=== PATIENT | female | born 1955 | race Caucasian/White ===

== ENCOUNTER 2020-02-16 08:05 | Outpatient (CLI) | payer BC, SELFPAY ==
--- NOTE | ~2020-02-16 | MM_ITS ---
EXAMINATION: MM screening [facility] BI w jimmy HISTORY: Screening mammogram TECHNIQUE: Craniocaudal and mediolateral oblique 3-D tomosynthesis images were obtained and synthetic 2-D images were generated. CAD analysis was submitted and interpreted. COMPARISON: Comparison to multiple prior studies sequentially, with oldest reviewed study dated 01/27/2017. BREAST PARENCHYMAL COMPOSITION: There are scattered areas of fibroglandular density. FINDINGS: There is no evidence of suspicious mass, calcification, or architectural distortion to sugg est malignancy in either breast. There has been no suspicious interval change. IMPRESSION: 1. No mammographic evidence of malignancy. 2. Recommend routine screening mammography in one year. BI-RADS Category 1: Negative Reviewed, dictated and finalized at location A.
== END 2020-02-16 08:06 | disposition home or self-care (01) ==
PROVIDERS: PCP Family Medicine; Visit Provider Family Medicine
DX: Z12.31 Encounter for screening mammogram for malignant neoplasm of breast (principal)
CPT/HCPCS: 77063; 77067

== ENCOUNTER 2021-01-10 14:15 | Outpatient (CLI) | payer BC, SELFPAY ==
--- NOTE | 2021-01-10 | ECG_ITS ---
Measurements Intervals [place] Rate: 78 P: 52 VT: 166 QRS: 8 QRSD: 82 T: 50 QT: 389 QTc: 446 Interpretive Statements SINUS RHYTHM MINIMAL Q WAVES- HIGH LATERAL LEADS BASELINE ARTIFACT- I, II, III, AVR, AVL, AVF, V1-V6 BORDERLINE ECG Electronically Signed On 01-10-2021 15:13:24 CDT by Tripp Dela Cruz D.O.
[2021-01-10 15:22] LABS: Hematocrit 41.7 % (37.0-47.0); Hemoglobin 13.8 g/dL (12.0-15.0)
[2021-01-10 15:30] LABS: Urine Cotinine NEGATIVE
[2021-01-10 15:33] LABS: Albumin Level 4.5 g/dL (3.5-5.1); Glucose 97 mg/dL (65-105)
[2021-01-10 16:01] LABS: Hemoglobin A1C 5.3 % (<5.7)
== END 2021-01-10 14:16 | disposition home or self-care (01) ==
PROVIDERS: PCP Family Medicine; Visit Provider Orthopaedic Surgery
DX: Z01.818 Encounter for other preprocedural examination (principal); M17.12 Unilateral primary osteoarthritis, left knee; I10 Essential (primary) hypertension; R01.1 Cardiac murmur, unspecified
CPT/HCPCS: 80307; 82040; 82947; 83036; 85014; 85018; 93005

== ENCOUNTER 2021-02-21 07:52 | Outpatient (CLI) | payer BC, SELFPAY ==
[2021-02-21 09:51] LABS: Basophils Percent Auto 0.5 % (0.2-1.2); Eosinophils Absolute Auto 0.3 K/mm3 (0-0.3); Eosinophils Percent Auto 4.3 % (0-4.4); Hematocrit 40.9 % (37.0-47.0); Hemoglobin 13.7 g/dL (12.0-15.0); Immature Granulocyte Absolute 0.01 K/mm3 (0.00-0.031); Immature Granulocyte Percent A 0.1 % (0-0.5); Lymphocytes Absolute Auto 1.55 K/mm3 (0.9-3.2); Lymphocytes Percent Auto 19.4 % (18.3-44.2); Mean Corpuscular HGB Conc 33.5 g/dl (32-36); Mean Corpuscular Hemoglobin 29.9 pg (26-34); Mean Corpuscular Volume 89.3 fl (80-100); Mean Platelet Volume 11.2 fl (7.4-10.4); Monocytes Absolute Auto 0.8 K/mm3 (0.1-0.6); Monocytes Percent Auto 9.5 % (2.6-8.5); Neutrophils Absolute Auto 5.3 K/mm3 (1.3-6.7); Neutrophils Percent Auto 66.2 % (45.5-73.1); Platelet Count Result 247 k/mm3 (150-375); Red Blood Count 4.58 M/mm3 (4.2-5.4); Red Cell Distribution Width 12.1 % (11.5-14.5)
[2021-02-21 10:03] LABS: Anion Gap 6 mmol/L (8-16); Blood Urea Nitrogen 20 mg/dL (7-17); Calcium 10.2 mg/dL (8.4-10.2); Carbon Dioxide 33 mmol/L (22-30); Chloride 100 mmol/L (98-107); Estimated Glomerular Filt Rate > 60; Glucose 98 mg/dL (65-105); Potassium 4.1 mmol/L (3.4-5.0); Sodium 139 mmol/L (137-145)
== END 2021-02-21 07:53 | disposition home or self-care (01) ==
PROVIDERS: Anesthesiology; PCP Family Medicine; Visit Provider Orthopaedic Surgery
DX: Z01.818 Encounter for other preprocedural examination (principal); M17.12 Unilateral primary osteoarthritis, left knee; I10 Essential (primary) hypertension
CPT/HCPCS: 36415; 80048; 85025; 86850; 86900; 86901; 87081

== ENCOUNTER → 2021-03-03 00:11 | Outpatient (CLI) | payer BC, SELFPAY ==
[2021-03-03 17:56] LABS: SARS-CoV-2 RNA PCR Negative
== END ==
PROVIDERS: PCP Family Medicine; Visit Provider Orthopaedic Surgery
DX: Z01.812 Encounter for preprocedural laboratory examination (principal); Z20.822 Contact with and (suspected) exposure to COVID-19
CPT/HCPCS: C9803; U0003; U0005

== ENCOUNTER 2021-03-07 15:02 | Observation (INO) | payer BC, SELFPAY ==
[2021-02-21 08:08] VITALS: BMI 37.6
[2021-02-21 09:02] VITALS: BP 127/85; PULSE 75; RESP 16; TEMP 36.6; O2SAT 100
[2021-03-06] VITALS (14 sets, daily range): BP systolic 87–134; BP diastolic 49–91; PULSE 58–88; RESP 12–20; TEMP 35.7–36.4; O2SAT 92–100
[2021-03-06] MEDS: ACETAMINOPHEN 500 MG TABLET 1000 MG PO (06:30)
[2021-03-06] MEDS: LACTATED RINGERS 1,000 ML 30 ML IV CONT ×2 (06:40→09:49)
--- NOTE | 2021-03-06 06:50 | WPDANESEPPF ---
Anes - Initial Pre Proc Eval Procedure: Operation Date: 03/06/21 07:30 Proposed Procedures p Left Total Knee Arthroplasty - Adama Solano MD Date/Time: 03/06/21 06:50 Surgeon: Adama Solano MD Pre Op Diagnosis: Primary OA, Left Knee Patient Data Age: 65 Gender: F Height: 1.6 m Weight: 96 kg Last Vital Signs Temp 36.1 C L 03/06/21 06:44 Pulse 88 03/06/21 06:44 Resp 16 02/21/21 09:02 BP 134/74 03/06/21 06:44 Pulse Ox 99 03/06/21 06:44 Allergies Allergy/AdvReac Type Severity Reaction Status Date / Time No Known Allergies Allergy Verified 03/06/21 06:20 Home Medications Medication Instructions Recorded Confirmed Type atenolol 25 mg tablet 25 mg PO DAILY #90 tablet 08/05/19 03/06/21 Rx olmesartan 20 1 tablet PO DAILY #90 tablet 08/05/19 03/06/21 Rx mg-hydrochlorothiazide 12.5 mg tablet tramadol 50 mg tablet 50 mg PO BID PRN #60 tablet 01/15/21 03/06/21 Rx duloxetine 30 mg capsule,delayed 30 mg PO DAILY #90 cap 02/05/21 03/06/21 Rx release rabeprazole 20 mg tablet,delayed 20 mg PO DAILY #90 tablet 02/05/21 03/06/21 Rx release calcium carbonate-vitamin D3 1 tablet PO DAILY 02/21/21 03/06/21 History [Caltrate 600 plus D] ibuprofen [Advil] 400 mg PO Q6H PRN 02/21/21 03/06/21 History pgcvhbtb-imm-ttba-FA-lutein 1 tablet PO DAILY 02/21/21 03/06/21 History [Centrum Silver Women] Patient hx anesthesia problems: none Family hx anesthesia problems: none PMFSH Past Medical History Medical History (Updated 03/06/21 @ 06:52 by Bong Townsend DO) Arthritis of both knees BMI 39.0-39.9,adult Body mass index (BMI) of 40.1 to 44.9 in adult Essential (primary) hypertension Exposure to COVID-19 virus GERD (gastroesophageal reflux disease) Heart murmur History of blood transfusion Infertility Kidney stone Need for Tdap vaccination Nevus of right eye Pneumonia Routine gynecological examination Skin cancer Strain of thoracic back region Surgical History Surgical History H/O total hysterectomy History of appendectomy History of colposcopy History of hip surgery (~1974) Bone spur removal History of knee surgery History of removal of ovarian cyst Family History Family History Sibling Family history of gastrointestinal disorder Hypertension Father Family history of chronic obstructive pulmonary disease Family history of congestive heart failure Hypertension Mother Family history of heart disease in male family member before age 55 Hypertension Grandparent Family history of heart disease in male family member before age 55 Social History Social History Smoking status: Never smoker Additional smoking assessment comments: DENIES ANY FORM OF TOBACCO USE Alcohol intake: current Drinks per week: 2 Substance use: never Living arrangements: with family Gender identity (if verbalized by the patient): Female Spiritual care concerns: No Agree to blood products: Yes Anes - Eval Final PreProcedure Day of Procedure 03/06/21 06:50 Patient weight: obese Heart: regular rate and rhythm Lungs: clear to auscultation and normal air movement Airway: Mallampati scale class III Neurological: alert and oriented Last oral intake: >/= 8 hours ASA classification: III Emergent: no Anesthetic plan: proceed Anesthesia type and monitoring: general LMA and standard monitoring Informed Consent: The patient's anesthetic plan and its attendant risks and benefits were discussed with the patient/family/POA. Questions were solicited and answers provided to the satisfaction of the patient/family/POA.
[2021-03-06] MEDS: TRANEXAMIC ACID 1,000MG/ISO100 1,000 MG/100 ML BAG 200 MG IVPB (06:52)
[2021-03-06] MEDS: SCOPOLAMINE 1.5 MG PATCH TRANSDERM (07:23)
[2021-03-06] MEDS: FAMOTIDINE 20 MG/2 ML VIAL IV PUSH (07:23)
--- NOTE | 2021-03-06 07:26 | WPDHPUPDATE1 ---
History and Physical Update Update Date/Time: 03/06/21 07:26 PRECEDE WITH LEFT TOTAL KNEE ARTHROPLASTY. History and Physical has been reviewed, including an updated exam of the patient. There are NO changes in the patient's condition. Risks, benefits, and alternatives have been discussed and questions answered. Patient agrees to proceed with procedure.
[2021-03-06] MEDS: ceFAZolin 2 GM/D5W 50 ML 2 GM/50 ML BAG IVPB (07:29)
--- NOTE | 2021-03-06 07:58 | WPDANESPNB ---
Anes - Peripheral Nerve Block Date/Time: 03/06/21 07:58 I have discussed with the patient/family/POA the placement of a peripheral nerve block for post-operative pain management, including associated risks, benefits, complications, and side effects. Alternative methods of post-operative analgesia were detailed. Questions were solicited and answers provided to the satisfaction of the patient/family/POA. Time-Out: A pre-procedural Time-Out was completed immediately before starting the procedure and confirmed: Patient Identification, Site, Procedure, Patient Position and the Availability of Requisite Equipment. Clinical Indications: Acute post-operative pain management requested by the operative surgeon. Nerve Block Insertion Note Anes-nerve block: adductor canal left Patient position: supine Skin prep: chlorhexidine Needle: 22 gauge, stimulating, insulated echogenic needle. Needle length: 80 mm Technique: ultrasound Injectate: bupivacaine 0.5% with epi 5 mcg/ml (20cc/20cc) Observations: tolerated well Complications: none Procedure start time:: 719 Procedure end time:: 722
[2021-03-06] MEDS: GENTAMICIN BONE CEMENT REFOBACIN 1 EACH TOPICAL (08:58)
[2021-03-06] MEDS: fentaNYL CITRATE INJ (*CRX) 100 MCG/2 ML VIAL 25 MCG IV PUSH ×7 (10:05→11:03)
--- NOTE | 2021-03-06 10:13 | W.PM.PROC2 ---
Procedure Note - Detailed Date of Procedure 03/06/21 Pre-op Diagnosis Primary OA, Left Knee Post-op Diagnosis same Procedure Performed Left total knee arthroplasty. Surgeon Adama Solano MD Veneer Redrier Gloria Rg PA-C Anesthesia general and regional Findings Fair bone quality. Significant overall laxity. Tightness in flexion required a 1.5 mm downsizing of the femur. Standard femoral and tibial resections. Significant synovitis noted. Very large medial release required. Description of Procedure Physician nurses medical assistants phlebotomists, Gloria Rg PA-C, required for surgery; including patient positioning, draping, tissue retraction, maintaining instrument position, cement removal, wound closure, and dressing placement. The patient was given a nerve block preoperatively, and then brought to the operating room. A general anesthetic was administered. The leg was prepped and draped in the usual sterile fashion. The limb was elevated and the tourniquet inflated to 300 mmHg during initial exposure, and cementation. A longitudinal incision was created along the medial border of the patella and patellar tendon, and a trivector approach to the knee was performed. A large medial release was taken. The knee was then flexed. The osteophytes were carefully removed. The intramedullary guide was placed in the femoral canal. The distal femoral resection was then taken with the oscillating saw. The collateral ligaments were carefully protected. The tibia was carefully exposed. The jig was applied, and the proximal tibia was resected according to preoperative plan. The anesthetic mixture was injected into the periarticular tissues. The knee was balanced in extension, and further medial release was performed including the semitendinosus. The anterior/ posterior cruciate ligament and meniscal remnants were removed. The patella was measured. Patellar resection was carried out with the oscillating saw. The lug holes drilled. The femur was sized and rotation assessed using a combination of gap balancing, posterior referencing, and the AP axis. The 4 in 1 cutting block was used to finish the femoral cuts after equal gaps were assured. The box cut was taken. The osteophytes were carefully removed from the back of the knee. The knee was copiously irrigated with antibiotic solution periodically throughout the procedure. The spacer block was used to confirm equal flexion and extension gaps. Further releases were performed as needed. The tibia was sized and broached. The bony surfaces were prepared for cementing with pulsatile lavage. The real tibial component and femoral components were cemented into position. Excess cement was carefully removed. The polyethylene insert was placed. The patella component was subsequently cemented. Patellar tracking was carefully assessed. No additional releases were required. The wound was closed with #1 Vicryl suture, #2 Quill suture, 9-Vxfwkt-rpn suture, and 2-0 Strata-fix suture followed by Steri-Strips. A sterile bulky dressing was applied. Meticulous hemostasis was maintained throughout the procedure. There were no complications. The patient was extubated and brought to the recovery room in stable condition after the application of sterile dressing with Papi bandage. Implants Livelensathlon knee system universal base plate size 4, cemented size 4 posterior stabilized femoral component, 16 mm posterior stabilized polyethylene insert, 35 mm asymmetric polyethylene patella. Two batches antibiotic Biomet cement. Estimated Blood Loss -150.0 Drains No Pathology none sent Complications No immediate complications Condition stable Disposition PACU
--- NOTE | 2021-03-06 11:15 | ADMGEN ---
This patient, Serenity Sullivan, was admitted to Medical Room 261-01. Patient/family oriented to hospital policies and general routines including ID bracelet, bed and alarms, visiting hours, pain management, procedures, bathroom and other care routines, personal items, smoking policy, room service/diet, and visiting hours. Information on how to activate the Rapid Response Team has been discussed. Patient/Family are encouraged to report perceived risks to care and to ask questions if they do not understand what they are told or what they should do.
[2021-03-06] MEDS: oxyCODONE HCL (*CRX) 5 MG TAB IR 10 MG PO (11:54)
[2021-03-06] MEDS: SODIUM CHLORIDE 0.9% IV 1,000 ML 125 ML IV CONT (11:54)
[2021-03-06] MEDS: ASPIRIN 81 MG ENTERIC TABLET PO (16:39)
[2021-03-06] MEDS: MELOXICAM 7.5 MG TABLET PO (16:39)
[2021-03-06] MEDS: DOCUSATE SODIUM 100 MG CAPSULE PO (16:39)
[2021-03-06] MEDS: oxyCODONE HCL (*CRX) 5 MG TAB IR PO ×2 (16:41→22:47)
[2021-03-06] MEDS: SENNOSIDES 8.6 MG TABLET 17.2 MG PO (22:47)
[2021-03-07] VITALS (7 sets, daily range): BP systolic 110–141; BP diastolic 59–82; PULSE 67–88; RESP 18–20; TEMP 36–36.6; O2SAT 98–100
--- NOTE | ~2021-03-07 | XR_ITS ---
EXAMINATION: XR knee LT 2V DATE: 03/06/2021 10:01 CDT INDICATION: Left total knee arthroplasties TECHNIQUE: 2 views left knee FINDINGS: There is a left total knee arthroplasty in expected position. Subcutaneous gas with fluid and air in the joint are consistent with recent surgery. No evidence of periprosthetic fracture. IMPRESSION: 1. Recent left total knee arthroplasty. Reviewed, dictated and finalized at location A.
[2021-03-07] MEDS: ONDANSETRON INJ 4 MG/2 ML VIAL IV PUSH ×4 (00:51→16:45)
[2021-03-07] MEDS: oxyCODONE HCL (*CRX) 5 MG TAB IR PO ×3 (04:30→22:47)
[2021-03-07 05:37] LABS: Basophils Percent Auto 0.3 % (0.2-1.2); Eosinophils Percent Auto 0.1 % (0-4.4); Hematocrit 33.1 % (37.0-47.0); Immature Granulocyte Percent A 0.7 % (0-0.5); Lymphocytes Absolute Auto 1.06 K/mm3 (0.9-3.2); Lymphocytes Percent Auto 7.2 % (18.3-44.2); Mean Corpuscular HGB Conc 33.2 g/dl (32-36); Mean Corpuscular Hemoglobin 29.4 pg (26-34); Mean Corpuscular Volume 88.5 fl (80-100); Mean Platelet Volume 10.8 fl (7.4-10.4); Monocytes Absolute Auto 1.3 K/mm3 (0.1-0.6); Monocytes Percent Auto 8.8 % (2.6-8.5); Neutrophils Absolute Auto 12.1 K/mm3 (1.3-6.7); Neutrophils Percent Auto 82.9 % (45.5-73.1); Platelet Count Result 212 k/mm3 (150-375); Red Blood Count 3.74 M/mm3 (4.2-5.4); Red Cell Distribution Width 12.4 % (11.5-14.5); White Blood Count 14.6 K/mm3 (4.5-10.0)
[2021-03-07 06:02] LABS: Anion Gap 7 mmol/L (8-16); Blood Urea Nitrogen 21 mg/dL (7-17); Calcium 8.8 mg/dL (8.4-10.2); Carbon Dioxide 28 mmol/L (22-30); Chloride 101 mmol/L (98-107); Estimated CRCL calculation 69 ml/min; Estimated Glomerular Filt Rate > 60; Glucose 117 mg/dL (65-105); Potassium 3.5 mmol/L (3.4-5.0); Sodium 136 mmol/L (137-145)
[2021-03-07] MEDS: ASPIRIN 81 MG ENTERIC TABLET PO ×2 (09:25→16:38)
[2021-03-07] MEDS: atenoloL 25 MG TABLET PO (09:25)
[2021-03-07] MEDS: PANTOPRAZOLE 40 MG TABLET PO (09:26)
[2021-03-07] MEDS: MELOXICAM 7.5 MG TABLET PO ×2 (09:26→16:38)
[2021-03-07] MEDS: hydroCHLOROthiazide 12.5 MG CAPSULE PO (09:26)
[2021-03-07] MEDS: OLMESARTAN MEDOXOMIL 20 MG TABLET PO (09:26)
[2021-03-07] MEDS: DULoxetine HCL 30 MG CAPSULE.DR PO (09:26)
[2021-03-07] MEDS: DOCUSATE SODIUM 100 MG CAPSULE PO ×2 (09:26→16:38)
[2021-03-07] MEDS: THERAPEUTIC MULTIVITAMINS/MINERALS TAB (*BKC) 1 TABLET PO (09:26)
--- NOTE | 2021-03-07 12:50 | WPDCN ---
Assessment and Plan Assessment and plan (1) Osteoarthritis of left knee: Code(s): M17.12 - Unilateral primary osteoarthritis, left knee Status: Acute Assessment and Plan: Postoperative day 0 status post left total knee arthroplasty. Wound care and pain control will be deferred to Dr. Solano as well as DVT prophylaxis. (2) Essential (primary) hypertension: Code(s): I10 - Essential (primary) hypertension Status: Chronic Assessment and Plan: Blood pressures were reviewed and they are stable postoperatively. Continue antihypertensives and monitor daily. (3) Gastroesophageal reflux disease: Code(s): K21.9 - Gastro-esophageal reflux disease without esophagitis Status: Acute Assessment and Plan: No acute issues. Continue PPI. (4) Anxiety: Code(s): F41.9 - Anxiety disorder, unspecified Status: Acute Assessment and Plan: No acute issues. Continue duloxetine. (5) Anemia: Code(s): D64.9 - Anemia, unspecified Status: Acute Assessment and Plan: Hemoglobin and hematocrit this morning were 11.0 and 33.1% respectively. Estimated blood loss was surgery was 150 ml. Repeat H&H in a.m.. (6) Confusion: Code(s): R41.0 - Disorientation, unspecified Status: Acute Assessment and Plan: Patient has mild confusion which I believe is likely due to narcotic pain medication. Will try to limit those and monitor closely. Additional Plan Thank you for allowing us to participate in this patient's care. Please do not hesitate to contact us with any questions. Supervising physician for this medical consultation is Dr. Mikayla Ronquillo. HPI Data of Consult Date/Time: 03/07/21 12:50 Requesting Physician: Adama Solano MD Primary Care Provider: Ambrocio Soto MD Consult Narrative Narrative: This is a 65-year-old female with osteoarthritis, hypertension, and GERD whom the hospitalist service has been consulted for management of her medical conditions postoperatively. She has had longstanding pain in that left knee not amenable to conservative outpatient treatment and thus she elected for replacement today. Her surgery was performed under general anesthesia with no immediate complications documented and an estimated blood loss of 150 ml. At the time of my evaluation she complains of throbbing pain in the back of the left knee radiating up the thigh. Her stomach has been upset and she has had quite a lot of nausea but no vomiting. She seems a little confused as well but she and her attribute that to the pain medications. She denies fever, chills, sweats, chest pain, shortness of breath, and vomiting. She also denies paresthesias, skin color, and temperature changes distal to the surgical site. Review of Systems Review of Systems: Narrative: Twelve systems were reviewed with pertinent positives and negatives as per HPI. She denies recent cold and flu symptoms. No headache, auditory visual changes, focal weakness, or paresthesias. She denies chest pain shortness of breath. No vomiting. No dysuria. No history of venous thromboembolism. Except as documented, all other systems were reviewed and are negative. [facility] Past Medical History Medical History (Updated 03/07/21 @ 21:30 by Karen Box PA-C) Anxiety Arthritis of both knees Benign paroxysmal positional vertigo Essential (primary) hypertension Gastroesophageal reflux disease Heart murmur History of blood transfusion History of squamous cell carcinoma of skin Kidney stone Surgical History Surgical History History of appendectomy History of arthroplasty of left knee (03/07/21) History of arthroscopy of both knees History of colposcopy History of hip surgery (~1974) Bone spur removal H
[2021-03-07] MEDS: PROMETHAZINE HCL 25 MG/ML AMPUL 12.5 MG IV PUSH ×2 (13:12→22:47)
[2021-03-07] MEDS: SODIUM CHLORIDE 0.9% IV 100 ML 20 ML (13:30)
--- NOTE | 2021-03-07 13:43 | PCOTNOTE ---
Attempted therapy session; Patient declined therapeutic attempts this session due to nausea and severe abdominal pain of 10/10; nurse notified/aware; follow up as appropriate for occupational therapy treatment session at later time/date.
--- NOTE | 2021-03-07 14:48 | PCOTNOTE ---
2nd attempt for therapy session this date; patient sleeping; per patient pain has finally let up and she was comfortable enough to rest; spoke with nursing and requested to allow patient to rest this afternoon; follow up at later date for occupational therapy session as appropriate.
--- NOTE | 2021-03-07 15:23 | PCPTNOTE ---
Attempted to see patient at 13:03 for second PT treatment, however patient refused due to nausea. Patient states, I have been throwing up since before lunch. I can't do therapy right now. Attempted a second time later in afternoon at 15:08, however patient asleep. Per RN, let patient sleep and rest, because her pain is more under control now. Will attempt to see patient tomorrow per plan of care. Gabriela Flores, FLORIST DESIGNER
--- NOTE | 2021-03-07 16:47 | PM.PNORT ---
Progress Note: A&P Assessment and Plan (1) Status post total left knee replacement: Code(s): Z96.652 - Presence of left artificial knee joint Status: Acute Assessment and Plan: Postop day 1: Left total knee arthroplasty. Patient tolerated procedure well. Having trouble with post surgical nausea and vomiting. No benefit from Zofran. Will try Metoclopramide. Also severe ABD pain. She has passed gas. Stomach soft. Will consult hospitalist for ABD pain and medical management. DVT prophylaxis: 81 mg baby aspirin b.i.d. for 14 days. Pain medication: Percocet. Subjective Subjective Date/Time Seen: 03/07/21 08:00, 12:30 POD#1 TKA Patient had a rough night. Had trouble sleeping. Also nausea that got worse throughout the day. Unable to keep food down. Increasing left quadrant abd pain. She has been passing gas. No chest pain or SOB. No numbness or tingling distally. Pain not well controlled. Block has worn off. Review of Systems Constitutional: Constitutional: Denies difficulty sleeping, Denies fatigue, Denies fever(s), Denies headache(s) and Denies night sweats Eyes: Eyes: Denies loss of vision ENT: Denies dizziness, Denies headache(s) and Denies hearing loss Cardiovascular: Cardiovascular: Denies irregular heart rhythm and Denies dyspnea Respiratory: Respiratory: Denies cough and Denies dyspnea Gastrointestinal: Gastrointestinal: Denies change in bowel habits, Denies diarrhea, Denies nausea and Denies vomiting Genitourinary: Genitourinary: Denies nocturia, Denies dysuria and Denies urinary incontinence Musculoskeletal: Musculoskeletal: Denies abnormal gait Neurologic: Denies abnormal gait, Denies dizziness, Denies headache(s) and Denies loss of vision Psychiatric: Psychiatric: Denies anxiety and Denies depression Endocrine: Endocrine: Denies cold intolerance, Denies fatigue and Denies heat intolerance Exam Narrative: Exam Narrative: 65-year-old overweight female. Resting uncomfortably in bed. Vomiting at the time of my visit. Alert and oriented x3. No acute distress. Wearing compression socks bilaterally. Dressing intact with no drainage. Moderate swelling. Slight ecchymosis. No erythema. No hematoma. No warmth. Range of motion limited due to pain. Calf nontender. Neurologic status intact. No varicosities. Distal pulses palpable. Light touch sensation intact. Good capillary refill. Objective Data Vital Signs Vital Signs: Vital Signs - 24 hr 03/06/21 17:20 03/06/21 20:00 03/06/21 20:27 Temperature 96.4 F L Pulse Rate 58 L 66 Respiratory Rate 18 20 Blood Pressure 114/64 Pulse Oximetry 99 98 98 03/06/21 20:40 03/07/21 00:37 03/07/21 04:56 Temperature 97.5 F L 97.2 F L 98 F Pulse Rate 66 67 72 Respiratory Rate 20 20 20 Blood Pressure 117/53 L 110/59 L 122/60 Pulse Oximetry 98 100 100 03/07/21 08:56 03/07/21 09:25 03/07/21 12:56 Temperature 97.8 F 97.9 F Pulse Rate 87 88 88 Respiratory Rate 18 18 Blood Pressure 128/80 130/78 Pulse Oximetry 98 98 Intake/Output Intake/Output: Intake & Output 03/04/21 03/05/21 03/06/21 03/07/21 23:59 23:59 23:59 23:59 Intake Total 1430 1190 Output Total 300 900 Balance 1130 290 Meds/Results Medications: Active Medications Generic Name Dose Route Start Last Admin Trade Name Freq PRN Reason Stop Dose Admin Aspirin 81 mg 03/06/21 17:00 03/07/21 16:38 Aspirin 81 Mg Enteric Tablet PO 81 mg BID [facility] Administration Atenolol 25 mg 03/07/21 09:00 03/07/21 09:25 Atenolol 25 Mg Tablet PO 25 mg DAILY [facility] Administration Calcium Carbonate 500 mg 03/07/21 09:00 03/07/21 09:26 Calcium/Vitamin D 500 Mg Tablet PO 500 mg DAILY [facility] Administration Cyclobenzaprine HCl 10 mg 03/06/21 11:11 Cyclobenzaprine Hcl 10 Mg Tablet PO Q8H PRN Spasms Docusate Sodium 100 mg 03/06/21 17:00 03/07/21 16:38 Docusate Sodium 100 Mg Capsule PO 100 mg BID [facility] Admini
[2021-03-07] MEDS: oxyCODONE HCL (*CRX) 5 MG TAB IR 10 MG PO (20:28)
[2021-03-07] MEDS: SENNOSIDES 8.6 MG TABLET 17.2 MG PO (20:28)
[2021-03-08] MEDS: oxyCODONE HCL (*CRX) 5 MG TAB IR PO ×2 (05:01→09:21)
[2021-03-08 05:32] VITALS: BP 120/66; PULSE 53; RESP 20; TEMP 36.6; O2SAT 98
[2021-03-08 05:32] LABS: Hematocrit 35.7 % (37.0-47.0); Hemoglobin 11.5 g/dL (12.0-15.0); Mean Corpuscular HGB Conc 32.2 g/dl (32-36); Mean Corpuscular Hemoglobin 29.3 pg (26-34); Mean Corpuscular Volume 90.8 fl (80-100); Mean Platelet Volume 10.4 fl (7.4-10.4); Platelet Count Result 253 k/mm3 (150-375); Red Blood Count 3.93 M/mm3 (4.2-5.4); Red Cell Distribution Width 12.5 % (11.5-14.5); White Blood Count 13.4 K/mm3 (4.5-10.0)
[2021-03-08 06:00] LABS: Alanine Aminotransferase 22 U/L (4-35); Alkaline Phosphatase 77 U/L (38-126); Anion Gap 7 mmol/L (8-16); Aspartate Amino Transferase 29 U/L (14-36); Bilirubin,Total 0.9 mg/dL (0.2-1.3); Blood Urea Nitrogen 11 mg/dL (7-17); Calcium 9.8 mg/dL (8.4-10.2); Carbon Dioxide 34 mmol/L (22-30); Chloride 97 mmol/L (98-107); Estimated CRCL calculation 78 ml/min; Estimated Glomerular Filt Rate > 60; Glucose 110 mg/dL (65-105); Magnesium 1.7 mg/dL (1.6-2.3); Potassium 3.8 mmol/L (3.4-5.0); Sodium 138 mmol/L (137-145)
[2021-03-08 08:19] VITALS: BP 101/57; PULSE 105; RESP 16; TEMP 36.4; O2SAT 96
[2021-03-08 09:17] VITALS: BP 120/74
[2021-03-08 09:18] VITALS: PULSE 94
[2021-03-08] MEDS: atenoloL 25 MG TABLET PO (09:18)
[2021-03-08] MEDS: ASPIRIN 81 MG ENTERIC TABLET PO (09:18)
[2021-03-08] MEDS: DULoxetine HCL 30 MG CAPSULE.DR PO (09:20)
[2021-03-08] MEDS: THERAPEUTIC MULTIVITAMINS/MINERALS TAB (*BKC) 1 TABLET PO (09:20)
[2021-03-08] MEDS: DOCUSATE SODIUM 100 MG CAPSULE PO (09:20)
[2021-03-08] MEDS: hydroCHLOROthiazide 12.5 MG CAPSULE PO (09:20)
[2021-03-08] MEDS: MELOXICAM 7.5 MG TABLET PO (09:20)
[2021-03-08] MEDS: OLMESARTAN MEDOXOMIL 20 MG TABLET PO (09:20)
[2021-03-08] MEDS: ONDANSETRON INJ 4 MG/2 ML VIAL IV PUSH (09:21)
[2021-03-08] MEDS: PANTOPRAZOLE 40 MG TABLET PO (09:21)
--- NOTE | 2021-03-08 11:41 | PM.IMPN ---
Progress Note: A&P Assessment and Plan (1) Osteoarthritis of left knee: Code(s): M17.12 - Unilateral primary osteoarthritis, left knee Status: Acute Assessment and Plan: Postoperative day 1 status post left total knee arthroplasty. She tolerated the procedure well and pain is well controlled at this time. Wound care and pain control will be deferred to Dr. Solano as well as DVT prophylaxis. (2) Essential (primary) hypertension: Code(s): I10 - Essential (primary) hypertension Status: Chronic Assessment and Plan: Blood pressures were reviewed and they are stable postoperatively. BP 132/84. Continue atenolol, olmesartan, and hydrochlorothiazide. Monitor BP daily. (3) Gastroesophageal reflux disease: Code(s): K21.9 - Gastro-esophageal reflux disease without esophagitis Status: Acute Assessment and Plan: No acute issues. Continue PPI. (4) Anxiety: Code(s): F41.9 - Anxiety disorder, unspecified Status: Acute Assessment and Plan: No acute issues. Continue duloxetine. (5) Anemia: Code(s): D64.9 - Anemia, unspecified Status: Acute Assessment and Plan: Hemoglobin and hematocrit this morning were 11.5 and 35.7% respectively, remaining stable postoperatively. Vital signs are stable and there is no evidence of ongoing blood loss. Monitor H&H. (6) Confusion: Code(s): R41.0 - Disorientation, unspecified Status: Acute Assessment and Plan: Resolved. Patient had mild confusion yesterday which was felt to be due to narcotic pain medication. Recommend limitation of narcotic pain medication. Subjective Date/time seen: 03/08/21 11:41 Interval history: Date of service: 03/08/2021 Serenity Sullivan is 65-year-old female with history of hypertension, BPPV, anxiety, and GERD who is status post left total knee arthroplasty and is seen in follow-up for consultation. She is feeling better today. She notes that she was confused yesterday but feels this is resolved entirely and she is back to her normal self. Was able to tolerate breakfast today. She complains of pain in her knee that she rates as 6-7/10 in severity but improves with analgesic. She is also having pain in the lower left flank. She feels this is a muscular pain related to her positioning during surgery. She notices the pain more if she is up and walking. She she denies abdominal cramping, bloating, nausea, or vomiting. She denies fever or chills. She is passing flatus but has not had a bowel movement, she feels that she needs to soon. She had a headache this morning but this has improved. She was able to get up and walk around with therapy. She denies any urinary symptoms. Denies dizziness, lightheadedness. She has no other concerns at this time. Review of Systems Review of Systems: All systems reviewed & are unremarkable except as noted in HPI and below Exam Narrative: Exam Narrative: Ms. Sullivan is a well-nourished, well-appearing 65-year-old female who is lying supine in bed. She appears comfortable and is in NARD. Neuro: awake, alert and oriented x4, speech clear, no focal neuro deficits noted HEENMT: normocephalic, atraumatic, EOMI, sclerae anicteric, moist oral mucosa, tongue midline, nares patent Neck: supple, no lymphadenopathy Respiratory: clear to auscultation bilaterally, nonlabored breathing Cardio: regular rate, regular rhythm with S1-S2 Abdomen: nondistended, normoactive bowel sounds, soft, nontender to palpation Extremities: Left knee in brace and covered with ice pack. Left thigh and calf nontender to palpation. Left lower extremity without edema, neurovascularly intact good sensation and brisk capillary refill. Right lower extremity no edema erythema, tenderness to palpation. DP pulses 2+ bilaterally Skin: no rashes or lesions, warm and dry Psych: appropriate mood and affect, judgment and insight intact Obj
--- NOTE | 2021-03-08 13:13 | PM.DS ---
DS: Admitting Diagnosis Admitting Diagnosis Admitting Diagnosis: Left knee osteoarthritis DS: Discharge Diagnosis Discharge Diagnosis (1) Status post total left knee replacement: Code(s): Z96.652 - Presence of left artificial knee joint Status: Acute Assessment and Plan: Postop day 2: Left total knee arthroplasty. Patient tolerated procedure well. Had trouble with post surgical nausea and vomiting. Also ABD pain. Hospitalist was consulted. She has passed gas. Stomach soft. Pain manageable with pain medication. No numbness or tingling. We had a lengthy discussion regarding postoperative wound care, limitations, expectations, and exercises. Patient shows good understanding. She has had initial physical therapy and is tolerating it well. DVT prophylaxis: 81 mg baby aspirin b.i.d. for 14 days. Pain medication: Percocet. Patient has followup appointment with Dr. Solano in 3 weeks. DS: Summary Hospital Course Reason for hospitalization: Total knee arthroplasty. Hospital Course: Patient tolerated procedure well. Has had initial PT/OT. Trouble with nausea and vomiting postop. Patient was able to hold down breakfast and lunch today without nausea. Also some pain in her lower abdomen. Hospitalist was consulted. Stable at this time. She has been passing gas. Status at Discharge Functional status at discharge: uses cane/walker Overall status at discharge: patient is progressing back to baseline Time Spent with Patient Time attestation: Total time spent providing and/or coordinating discharge services: Exam Narrative: Exam Narrative: Overweight 65-year-old female. Resting comfortably in bed. Alert and oriented x3. No acute distress. Wearing compression socks bilaterally. Dressing intact with no drainage. Moderate swelling. No ecchymosis. No erythema. No hematoma. Range of motion limited due to pain. Calf nontender. Neurologic status intact. No varicosities. Distal pulses palpable. DS: Data Data Completed and Pending Labs on day of discharge: Labs from last 24 hours 03/08/21 03/08/21 05:22 05:22 WBC 13.4 H RBC 3.93 L Hgb 11.5 L Hct 35.7 L MCV 90.8 MCH 29.3 MCHC 32.2 RDW 12.5 Plt Count 253 MPV 10.4 Sodium 138 Potassium 3.8 Chloride 97 L Carbon Dioxide 34 H Anion Gap 7 L BUN 11 D Creatinine 0.70 Estim Creat Clear Calc 78 Estimated GFR > 60 Glucose 110 H Calcium 9.8 Magnesium 1.7 Total Bilirubin 0.9 AST 29 ALT 22 Alkaline Phosphatase 77 Total Protein 7.0 Albumin 4.0 Discharge Plan Discharge Consulting providers: Cyrus Morton Discharging Clinician: Adama Solano Patient Disposition: Home, Self-Care Activity: may shower and other - see discharge instructions Diet: as tolerated and regular Wound Care Instructions: follow printed instructions Discharge Instructions: Remove the Scopolamine patch that was placed behind your left ear in 72 hours or less. Wash your hands after touching. Ortho: See instruction sheet Stand Alone Forms: General Discharge Instructions Follow-up/Referrals: Gloria Rg PA [Physician Outreach Professional] - Discharge Medications: New oxycodone-acetaminophen 5-325 mg tablet 1 - 2 tablet PO Q4-6H MDD 6 PRN (Reason: pain) Qty: 30 RF: 0 aspirin 81 mg tablet,delayed release (DR/EC) 81 mg PO BID 14 Days Qty: 28 RF: 0 Continued Centrum Silver Women 8 mg iron-400 mcg-300 mcg Tablet 1 tablet PO DAILY RF: 0 Caltrate 600 plus D 600 mg (1,500 mg)-800 unit Tablet,Chewable 1 tablet PO DAILY RF: 0 ibuprofen [Advil] 200 mg Tablet 400 mg PO Q6H PRN (Reason: Pain) RF: 0 olmesartan-hydrochlorothiazide 20-12.5 mg tablet 1 tablet PO DAILY Qty: 90 RF: 1 atenolol 25 mg tablet 25 mg PO DAILY Qty: 90 RF: 1 tramadol 50 mg tablet 50 mg PO BID PRN (Reason: pain) Qty: 60 RF: 0 duloxetine 30 mg capsule,delayed release(DR/EC)
== END 2021-03-08 14:50 | disposition home or self-care (01) ==
LOC: ANHSURGERY 15:05 → ANH2MED 15:05
PROVIDERS: Physician Assistant; Admitting Provider Orthopaedic Surgery; PCP Family Medicine; Visit Provider Physician Assistant
PROC: (CPT 27447; principal; 2021-03-06 07:30)
DX: M17.12 Unilateral primary osteoarthritis, left knee (principal); G89.18 Other acute postprocedural pain; M65.862 Other synovitis and tenosynovitis, left lower leg; R11.2 Nausea with vomiting, unspecified; I10 Essential (primary) hypertension; K21.9 Gastro-esophageal reflux disease without esophagitis; F41.9 Anxiety disorder, unspecified; D64.9 Anemia, unspecified; R41.0 Disorientation, unspecified; E66.9 Obesity, unspecified; Z68.37 Body mass index [BMI] 37.0-37.9, adult
CPT/HCPCS: 27447; 64447; 36415; 73560; 80048; 80053; 83735; 85025; 85027; 86850; 86900; 86901; 87081; 97110; 97116; 97161; 97165; 97530; 97535; A9270; C1713; C1776; C9803; G0378; J0131; J0171; J0690; J1100; J1170; J1885; J2250; J2270; J2370; J2405; J2550; J2704; J2795; J3010; J7030; J7120; U0003; U0005

== ENCOUNTER → 2021-04-13 14:41 | Outpatient (CLI) | payer BC, SELFPAY ==
--- NOTE | ~2021-04-13 | XR_ITS ---
XR lumbar spine 2-3V DATE: 04/13/2021 15:00 INDICATION: Lumbago with sciatica, left side TECHNIQUE: AP, lateral, coned lateral lumbosacral views COMPARISON: None FINDINGS: There is diffuse osteopenia. There is moderately severe degenerative disc disease at L1 to, moderate degenerative disc disease and minimal retrolisthesis at L2-3. There is mild degenerative disc disease and minimal retrolisthesis at L3-4. There is moderately prominent degenerative disease at L4-5 and moderately severe degenerative disc di sease at L5-S1. There is grade 1 anterolisthesis at L4-5 due to degenerative change at the apophyseal joints. No fracture or bone destruction. The included lower thoracic and lumbar pedicles are intact. The sacroiliac joints are intact. IMPRESSION: Diffuse osteopenia Multilevel degenerative disc disease, including mild retrolisthesis at L2-3 and L3-4 Degenerative change at the apophyseal joints with grade 1 anterolisthesis at L4-5 Reviewed, dictated and finalized at location A. IMPRESSION: Diffuse osteopenia Multilevel degenerative disc disease, including mild retrolisthesis at L2-3 and L3-4 Degenerative change at the apophyseal joints with grade 1 anterolisthesis at L4 -5
== END ==
PROVIDERS: PCP Family Medicine; Visit Provider Nurse Practitioner Family
DX: M47.816 Spondylosis without myelopathy or radiculopathy, lumbar region (principal); M85.88 Other specified disorders of bone density and structure, other site
CPT/HCPCS: 72100

== ENCOUNTER 2021-09-25 15:58 | Outpatient (CLI) | payer BC, SELFPAY ==
--- NOTE | ~2021-09-25 | MM_ITS ---
EXAMINATION: MM screening [facility] BI w jimmy HISTORY: Screening mammogram TECHNIQUE: Craniocaudal and mediolateral oblique 3-D tomosynthesis images were obtained and synthetic 2-D images were generated. CAD analysis was submitted and interpreted. COMPARISON: 02/16/2020, 02/11/2019, 08/10/2018, 02/06/2018, 02/05/2018 BREAST PARENCHYMAL COMPOSITION: The breasts are almost entirely fatty. FINDINGS: A stable asymmetry is present in the inner left breast on the craniocaudal view. There is n o evidence of suspicious mass, calcification, or architectural distortion to suggest malignancy in ei ther breast. There has been no suspicious interval change. IMPRESSION: 1. No mammographic evidence of malignancy. 2. Recommend routine screening mammography in one year. BI-RADS Category 2: Benign finding(s). Reviewed, dictated and finalized at location A. 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
== END 2021-09-25 15:59 | disposition home or self-care (01) ==
PROVIDERS: PCP Family Medicine; Visit Provider Obstetrics & Gynecology
DX: Z12.31 Encounter for screening mammogram for malignant neoplasm of breast (principal)
CPT/HCPCS: 77063; 77067

== ENCOUNTER 2022-02-06 10:15 | Outpatient (CLI) | payer BC, SELFPAY ==
--- NOTE | 2022-02-06 | ECG_ITS ---
Measurements Intervals [place] Rate: 76 P: 55 VA: 178 QRS: 15 QRSD: 84 T: 36 QT: 372 QTc: 420 Interpretive Statements SINUS RHYTHM NORMAL ECG Electronically Signed On 02-06-2022 12:08:17 CDT by Tripp Dela Cruz D.O.
[2022-02-06 11:02] LABS: Hematocrit 40.3 % (37.0-47.0); Hemoglobin 13.2 g/dL (12.0-15.0)
[2022-02-06 11:12] LABS: Albumin Level 4.6 g/dL (3.5-5.1); Estimated Glomerular Filt Rate > 60
[2022-02-06 11:21] LABS: Hemoglobin A1C 5.2 % (<5.7)
[2022-02-06 17:47] LABS: Glucose 104 mg/dL (65-110)
== END 2022-02-06 10:16 | disposition home or self-care (01) ==
PROVIDERS: PCP Family Medicine; Visit Provider Orthopaedic Surgery
DX: Z01.818 Encounter for other preprocedural examination (principal); K21.9 Gastro-esophageal reflux disease without esophagitis; R73.03 Prediabetes; I10 Essential (primary) hypertension; R01.1 Cardiac murmur, unspecified
CPT/HCPCS: 82040; 82565; 82947; 83036; 85014; 85018; 93005

== ENCOUNTER 2022-03-11 11:52 | Outpatient (CLI) | payer BC, SELFPAY ==
[2022-03-11 13:30] LABS: Basophils Absolute Auto 0.1 K/mm3 (0.0-0.1); Basophils Percent Auto 0.7 % (0.2-1.2); Eosinophils Absolute Auto 0.1 K/mm3 (0-0.3); Eosinophils Percent Auto 1.9 % (0-4.4); Hematocrit 39.6 % (37.0-47.0); Hemoglobin 13.4 g/dL (12.0-15.0); Immature Granulocyte Absolute 0.03 K/mm3 (0.00-0.031); Immature Granulocyte Percent A 0.4 % (0-0.5); Lymphocytes Absolute Auto 1.57 K/mm3 (0.9-3.2); Lymphocytes Percent Auto 20.9 % (18.3-44.2); Mean Corpuscular HGB Conc 33.8 g/dl (32-36); Mean Corpuscular Hemoglobin 29.8 pg (26-34); Mean Platelet Volume 11.1 fl (7.4-10.4); Monocytes Absolute Auto 0.7 K/mm3 (0.1-0.6); Monocytes Percent Auto 9.7 % (2.6-8.5); Neutrophils Percent Auto 66.4 % (45.5-73.1); Platelet Count Result 234 k/mm3 (150-375); Red Cell Distribution Width 12.6 % (11.5-14.5); White Blood Count 7.5 K/mm3 (4.5-10.0)
[2022-03-11 13:35] LABS: Albumin Level 4.7 g/dL (3.5-5.1)
[2022-03-11 13:37] LABS: Anion Gap 3 mmol/L (8-16); Blood Urea Nitrogen 21 mg/dL (7-17); Calcium 9.4 mg/dL (8.4-10.2); Carbon Dioxide 34 mmol/L (22-30); Chloride 98 mmol/L (98-107); Estimated Glomerular Filt Rate > 60; Glucose 102 mg/dL (65-110); Sodium 135 mmol/L (137-145)
[2022-03-11 13:39] LABS: Urine Cotinine NEGATIVE
== END 2022-03-11 11:53 | disposition home or self-care (01) ==
LOC: ANHSURGERY 12:01
PROVIDERS: Anesthesiology; PCP Family Medicine; Visit Provider Orthopaedic Surgery
DX: Z01.818 Encounter for other preprocedural examination (principal); M17.12 Unilateral primary osteoarthritis, left knee; Z79.899 Other long term (current) drug therapy
CPT/HCPCS: 80048; 80307; 82040; 85025; 87081

== ENCOUNTER 2022-04-09 00:05 | Day surgery (SDC) | payer BC, SELFPAY ==
--- NOTE | 2022-03-11 11:44 | PC.NURSE ---
Report to the Outpatient Waiting Room, entrance under the green pavilion located off [facility], at time _1130_ on date _04/09/22_. OR Time: _1:30 PM_. - You and your visitor will be asked a series of questions to screen for COVID 19 for your protection. - Only one visitor is allowed at this time. VISITING HOURS 10AM-8PM, USE MAIN HOSPITAL ENTRANCE - The patient visitor is requested to leave or wait in car when not with patient. - A mask is required within the hospital. Patients may have clear liquids (water, carbonated beverages, clear teas, apple juice) until 3 hours prior to surgery (1030 AM) with a maximum of 20 ounces. - No food from midnight until time of surgery Take the following medications with a SIP of water the morning of surgery: _ATENOLOL, DULOXETINE_ Medications to discontinue N/A____, Date to take last dose Please no make-up, nail thai, hairspray, perfume, deodorant, or body powder the day of surgery. No jewelry (including any body piercings) or valuables the day of surgery, leave them at home. Please take a shower or bath the night before, or the morning of, surgery with an antibacterial soap. Wear comfortable, loose fitting clothing. - Jewelry must be removed prior to entering the operating room. Rings and piercings that are not removed may be cut off. - The hospital will not accept responsibility for valuables. - Please leave all valuables, including medications, at home the day of surgery. If you are going home after surgery, a licensed public transit bus driver must drive you home. - NO public transportation without another adult. - We recommend that an adult stay with you for 24 hours following discharge. - We also recommend that you do not drive, make important decision, drink alcoholic beverages, or take any drugs that were not prescribed by your health care provider for at least 24 hours after your discharge time. Follow any additional instructions given to you from DR. BILLS. TOTAL JOINT CLASS 03/27/22 @ 1000 AM, [facility] - USE MAIN ENTRANCE If you or anyone in your household have experienced Covid symptoms in the past week, please notify your surgeon or the nurse liaison at the phone number below for possible testing. Instructions given to _PT_and asked if any additional questions and then verbalized understanding. Patient advised to call surgeon office or pre surgery nurse liaison [phone] if any additional questions.
[2022-03-11 12:32] VITALS: BP 134/80; PULSE 80; RESP 18; TEMP 36.6; O2SAT 97; BMI 39.5
--- NOTE | 2022-04-08 14:46 | WPDANESEPPF ---
Anes - Initial Pre Proc Eval Procedure: Operation Date: 04/09/22 13:30 Proposed Procedures p Right Total Knee Arthroplasty - Adama Solano MD Date/Time: 04/08/22 14:46 Surgeon: Adama Solano MD Pre Op Diagnosis: primary oa rigth knee Patient Data Age: 67 Gender: F Height: 1.57 m Weight: 98.1 kg Last Vital Signs Temp 36.6 C 03/11/22 12:32 Pulse 80 03/11/22 12:32 Resp 18 03/11/22 12:32 BP 134/80 03/11/22 12:32 Pulse Ox 97 03/11/22 12:32 O2 Del Method Room Air 03/11/22 12:32 Allergies Allergy/AdvReac Type Severity Reaction Status Date / Time oxycodone [From OxyContin] AdvReac Severe Confusion Verified 03/28/22 09:30 Home Medications Medication Instructions Recorded Confirmed Type atenolol 25 mg tablet 25 mg PO QAM 03/11/22 03/11/22 History duloxetine 30 mg capsule,delayed 30 mg DAILY 03/11/22 03/11/22 History release olmesartan 20 1 tablet PO QAM 03/11/22 03/11/22 History mg-hydrochlorothiazide 12.5 mg tablet rabeprazole 20 mg tablet,delayed 20 mg PO QAM 03/11/22 03/11/22 History release sulfamethoxazole 800 1 tablet PO Q12H #10 tabs 03/27/22 Rx mg-trimethoprim 160 mg tablet (Bactrim DS) Patient hx anesthesia problems: none Family hx anesthesia problems: none Results Review: All pre-operative results and documents have been reviewed as part of the pre-operative evaluation. [facility] Past Medical History Medical History (Updated 04/08/22 @ 14:47 by Humberto Turpin MD) Abnormal mammogram Actinic keratosis Acute non-recurrent frontal sinusitis Ankle edema, bilateral Anxiety Arthritis of both knees Benign paroxysmal positional vertigo Essential (primary) hypertension Gastroesophageal reflux disease Heart murmur History of blood transfusion 2003 History of squamous cell carcinoma of skin Impaired glucose tolerance (oral) Kidney stone Obesity (BMI 30-39.9) Prediabetes Primary osteoarthritis of right knee Vertigo Surgical History Surgical History History of appendectomy History of arthroplasty of left knee (03/07/21) History of arthroscopy of both knees History of colposcopy History of hip surgery (~1974) Bone spur removal History of hysterectomy 2014? History of removal of ovarian cyst Status post surgical removal of malignant neoplasm of skin Excision squamous cell carcinoma of the upper extremities. Family History Family History Sibling Family history of gastrointestinal disorder Hypertension Father Family history of chronic obstructive pulmonary disease Family history of congestive heart failure Hypertension Mother Family history of heart disease in male family member before age 55 Hypertension Grandparent Family history of heart disease in male family member before age 55 Social History Social History Social History: The patient lives in [place] with her . They have 7-month-old twin granddaughters and she helps care for them during the week days. Lifelong nonsmoker. Rare alcohol use in moderation. No illicit substance use. She designates her as her surrogate decision maker and she wishes to be a full code. 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
--- NOTE | 2022-04-08 14:47 | WPDANESPNB ---
Anes - Peripheral Nerve Block Date/Time: 04/08/22 14:47 I have discussed with the patient/family/POA the placement of a peripheral nerve block for post-operative pain management, including associated risks, benefits, complications, and side effects. Alternative methods of post-operative analgesia were detailed. Questions were solicited and answers provided to the satisfaction of the patient/family/POA. Time-Out: A pre-procedural Time-Out was completed immediately before starting the procedure and confirmed: Patient Identification, Site, Procedure, Patient Position and the Availability of Requisite Equipment. Clinical Indications: Acute post-operative pain management requested by the operative surgeon. Nerve Block Insertion Note Anes-nerve block: adductor canal right Patient position: supine Skin prep: chlorhexidine Needle: 22 gauge, stimulating, insulated echogenic needle. Needle length: 80 mm Technique: ultrasound Technique comment: in plane Injectate: bupivacaine 0.5% with epi 5 mcg/ml (30cc) Observations: tolerated well Complications: none Procedure start time:: 1300 Procedure end time:: 1305
[2022-04-09] VITALS (15 sets, daily range): BP systolic 103–131; BP diastolic 57–90; PULSE 64–99; RESP 16–19; TEMP 36.3–37.1; O2SAT 95–100
--- NOTE | ~2022-04-09 | XR_ITS ---
EXAMINATION: XR knee RT 2V DATE: 04/09/2022 15:50 INDICATION: Total right knee arthroplasty. Postop. TECHNIQUE: 2 views of right knee were obtained. COMPARISON: Right knee radiographs 03/28/2022 FINDINGS: There is a total right knee arthroplasty with patellar resurfacing in near-anatomic alignme nt. No fracture. There is gas in the knee joint and soft tissues, consistent with recent surgery. IMPRESSION: 1. Total right knee arthroplasty in near-anatomic alignment. Reviewed, dictated and finalized at location A.
--- NOTE | 2022-04-09 07:11 | WPDHPUPDATE1 ---
History and Physical Update Update Date/Time: 04/09/22 07:11 History and Physical has been reviewed, including an updated exam of the patient. There are NO changes in the patient's condition. Risks, benefits, and alternatives have been discussed and questions answered. Patient agrees to proceed with procedure.
[2022-04-09] MEDS: ACETAMINOPHEN 500 MG TABLET 1000 MG PO (11:50)
[2022-04-09] MEDS: LACTATED RINGERS 1,000 ML 30 ML IV CONT ×2 (12:10→15:32)
[2022-04-09] MEDS: TRANEXAMIC ACID 1,000MG/ISO100 1,000 MG/100 ML BAG 200 MG IVPB (13:01)
[2022-04-09] MEDS: ceFAZolin 2 GM/D5W 50 ML 2 GM/50 ML BAG IVPB ×2 (13:19→21:03)
[2022-04-09] MEDS: fentaNYL CITRATE INJ (*CRX) 100 MCG/2 ML VIAL 25 MCG IV PUSH ×8 (15:39→16:35)
--- NOTE | 2022-04-09 16:29 | W.PM.PROC2 ---
Procedure Note - Detailed Date of Procedure 04/09/22 Pre-op Diagnosis Primary oa right knee Post-op Diagnosis Same Procedure Performed Total knee arthroplasty, right. Surgeon Adama Solano MD [employer] Gloria Harding PA-C Anesthesia General and Regional (subsartorial block) Findings Extensive synovitis. Very advanced degenerative changes with valgus deformity. Valgus laxity. Extensive tibial and femoral osteophytes. Good bone quality. Lateral release required with pie crusting of the lateral collateral ligament. 1.5 mm downsizing of the femoral component. Minimal resection of the distal lateral femur. 3? rotation remained optimal. Description of Procedure The patient was brought to the operating room. A general anesthetic was administered. The leg was prepped and draped in the usual sterile fashion. The limb was elevated and the tourniquet inflated to 300 mmHg during initial exposure, and cementation. A longitudinal incision was created along the medial border of the patella and patellar tendon, and a trivector approach to the knee was performed. No medial release was taken. The knee was then flexed. The osteophytes were carefully removed. The intramedullary guide was placed in the femoral canal. The distal femoral resection was then taken with the oscillating saw. The collateral ligaments were carefully protected. The tibia was carefully exposed. The jig was applied, and the proximal tibia was resected according to preoperative plan. The knee was balanced in extension. Appropriate releases were taken where needed. Lateral release was required with pie crusting the LCL and release of the popliteus and IT band. The anterior cruciate ligament and meniscal remnants were removed. The posterior cruciate ligament was resected. The patella was measured. Patellar resection was carried out with the oscillating saw. The femur was sized and rotation assessed using a combination of gap balancing, posterior referencing, and the AP axis. The 4 in 1 cutting block, and box cut guider were used to finish the femoral cuts after equal gaps were assured. The osteophytes were carefully removed from the back of the knee. The knee was copiously irrigated with antibiotic solution periodically throughout the procedure. The meniscal remnants were removed. The spacer block was used to confirm equal flexion and extension gaps. The tibia was sized and broached. The bony surfaces were prepared for cementing with pulsatile lavage. The real tibial and femoral and patellar components were cemented into position. Excess cement was carefully removed. Patellar tracking was carefully assessed. No additional releases were required. Dilute sterile Betadine soak performed for three minutes. Copious irrigation then performed. The wound was closed with #1 Vicryl suture, #2, 2-0, and 3-0 barbed suture, followed by Steri-Strips. A sterile bulky dressing was applied. Meticulous hemostasis was maintained throughout the procedure. The bipolar cautery device was used. The pain relieving mixture was injected into the periarticular tissues during the procedure. There were no complications. The patient was extubated and brought to the recovery room in stable condition after the application of sterile dressing with Papi bandage. Implants [employer] Triathlon knee system, universal cemented tibia size 4, cemented posterior stabilized femoral component size 4 ,and a 16 mm PS polyethylene insert. 32mm asymmetric all polyethylene patella component. Estimated Blood Loss -150.0 Drains No Pathology None sent Complications No immediate complications Condition Stable Disposition PACU [facility] Billing Surgery - Charge Forward: Surgery Billing
--- NOTE | 2022-04-09 16:56 | SUR.PHASEI ---
1645 PT MEETS ANESTHESIA CRITERIA TO BE DISCHARGED TO THE FLOOR. NO ROOM AVAILABLE. IN A HOLDING PATTERN.
[2022-04-09] MEDS: SODIUM CHLORIDE 0.9% IV 1,000 ML 125 ML IV CONT (20:56)
[2022-04-09] MEDS: ASPIRIN 81 MG ENTERIC TABLET PO (20:58)
[2022-04-09] MEDS: SENNA/DOCUSATE SODIUM TABLET 2 TAB PO (20:58)
[2022-04-09] MEDS: MELOXICAM 7.5 MG TABLET PO (20:58)
[2022-04-09] MEDS: traMADol HCL (*CRX) 50 MG TABLET PO (22:44)
[2022-04-10 00:29] VITALS: BP 101/54; PULSE 81; RESP 14; TEMP 36.7; O2SAT 99
[2022-04-10] MEDS: traMADol HCL (*CRX) 50 MG TABLET PO ×2 (03:25→08:46)
[2022-04-10 04:19] VITALS: BP 122/66; PULSE 69; RESP 18; TEMP 36.9; O2SAT 98
[2022-04-10] MEDS: ceFAZolin 2 GM/D5W 50 ML 2 GM/50 ML BAG IVPB (04:44)
[2022-04-10 08:29] VITALS: BP 131/73; PULSE 81; RESP 18; TEMP 36.9; O2SAT 96
[2022-04-10 09:53] VITALS: O2SAT 95
--- NOTE | 2022-04-10 10:11 | PM.DS ---
DS: Admitting Diagnosis Discharge Date 04/10/22 Admitting Diagnosis OA knee Right DS: Discharge Diagnosis Discharge Diagnosis (1) Status post total right knee replacement: Code(s): Z96.651 - Presence of right artificial knee joint Status: Acute Assessment and Plan: Postop day 1: Right total knee arthroplasty. Patient tolerated procedure well. No complications. Pain manageable with pain medication. No numbness or tingling. We had a lengthy discussion regarding postoperative wound care, limitations, expectations, and exercises. Patient shows good understanding. He has had initial physical therapy and is tolerating it well. DVT prophylaxis: 81 mg baby aspirin b.i.d. for 14 days. Short frequent walks. Compression socks for 3 weeks. Pain medication: Tramadol. Prednisone. Meloxicam. Patient has followup appointment with Dr. Solano in 3 weeks. DS: Summary Hospital Course Reason for hospitalization: Total knee arthroplasty Hospital Course: Patient tolerated procedure well. Has had initial PT/OT. No complications. Pain well managed. Status at Discharge Functional status at discharge: uses cane/walker Overall status at discharge: patient is progressing back to baseline Time Spent with Patient Time attestation: Total time spent providing and/or coordinating discharge services: Exam Narrative: Overweight female. Resting comfortably in chair. No acute distress. A&O x3. Wearing compression socks bilaterally. Dressing intact with no drainage. Moderate swelling. Small area of ecchymosis. No erythema. No hematoma. Good early range of motion. 5-90 degrees. Calf nontender. Neurologic status intact. No varicosities. Distal pulses palpable. DS: Data Data Completed and Pending Labs on day of discharge: Labs from last 24 hours 04/09/22 11:58 Blood Type O Positive Antibody Screen Negative Discharge Plan Discharge Patient Disposition: Home, Self-Care Discharge Instructions: See green instruction sheets Stand Alone Forms: General Discharge Instructions Follow-up/Referrals: Gloria Harding PA [Physician Purifying Plant Operator] - Discharge Medications: New aspirin 81 mg tablet,delayed release (DR/EC) 81 mg PO BID 14 Days Qty: 28 0RF meloxicam 15 mg tablet 15 mg PO DAILY Qty: 30 0RF Rx Instructions: Cut in half. Take 1/2 in morning and 1/2 at night. Take with food. Stop if stomach upset. prednisone 5 mg tablet 5 mg PO DAILY 21 Days Qty: 21 0RF aspirin 81 mg tablet,delayed release (DR/EC) 81 mg PO BID 14 Days Qty: 28 0RF tramadol 50 mg tablet 50 mg PO Q4-6H PRN (Reason: pain) Qty: 30 0RF Continued rabeprazole 20 mg tablet,delayed release (DR/EC) 20 mg PO QAM Rx Instructions: Do not crush, chew, or divide. atenolol 25 mg tablet 25 mg PO QAM Rx Instructions: TAKE 1 TABLET BY MOUTH EVERY DAY olmesartan-hydrochlorothiazide 20-12.5 mg tablet 1 tablet PO QAM Rx Instructions: TAKE 1 TABLET BY MOUTH EVERY DAY duloxetine 30 mg capsule,delayed release(DR/EC) 30 mg DAILY Rx Instructions: TAKE 1 CAPSULE BY MOUTH DAILY
[2022-04-10] MEDS: predniSONE 5 MG TABLET PO (10:19)
[2022-04-10] MEDS: ASPIRIN 81 MG ENTERIC TABLET PO (10:19)
[2022-04-10] MEDS: OLMESARTAN MEDOXOMIL 20 MG TABLET PO (10:20)
[2022-04-10] MEDS: PANTOPRAZOLE 40 MG TABLET PO (10:20)
[2022-04-10] MEDS: SENNA/DOCUSATE SODIUM TABLET 2 TAB PO (10:20)
[2022-04-10] MEDS: MELOXICAM 7.5 MG TABLET PO (10:20)
[2022-04-10 10:21] VITALS: PULSE 69
[2022-04-10] MEDS: polyethylene glycoL 3350 17 GM POWD.PACK PO (10:21)
[2022-04-10] MEDS: atenoloL 25 MG TABLET PO (10:21)
== END 2022-04-10 11:20 | disposition home or self-care (01) ==
LOC: ANHSURGERY 11:29 → ANH3MED 04-10 10:11
PROVIDERS: PCP Family Medicine; Visit Provider Orthopaedic Surgery
PROC: (CPT 27447; principal; 2022-04-09 13:30)
DX: M17.11 Unilateral primary osteoarthritis, right knee (principal); G89.18 Other acute postprocedural pain; K21.9 Gastro-esophageal reflux disease without esophagitis; F41.9 Anxiety disorder, unspecified; I10 Essential (primary) hypertension; R73.03 Prediabetes; E66.01 Morbid (severe) obesity due to excess calories; Z68.39 Body mass index [BMI] 39.0-39.9, adult
CPT/HCPCS: 27447; 64447; 36415; 73560; 86850; 86900; 86901; 97110; 97161; 97165; A9270; C1713; C1776; J0131; J0171; J0690; J1100; J1170; J1885; J2250; J2370; J2405; J2704; J2795; J3010; J7030; J7120; J7512

== ENCOUNTER 2022-12-13 07:42 | Outpatient (CLI) | payer BC, SELFPAY ==
--- NOTE | ~2022-12-13 | DEXA_ITS ---
Bone Density Report Name: PHILIP PICKENS Age: 67 Sex: Female Ethnicity: White Date of : 1955 Indication: postmenopausal; screening for osteoporosis; parental hip fracture; hysterectomy; Referring Provider: SAVAGE HOLMAN Study: Bone densitometry was performed. Exam Date: December 13, 2022 Accession number: [id number] Bone Density: Region BMD T-score Z-score Classification AP Spine(L1-L4) 0.935 -1.0 0.8 Normal Femoral Neck (Left) 0.682 -1.5 0.0 Osteopenia Total Hip (Left) 0.895 -0.4 0.9 Normal Femoral Neck (Right) 0.625 -2.0 -0.5 Osteopenia Total Hip (Right) 0.834 -0.9 0.4 Normal Total Hip Mean 0.865 -0.7 0.7 Normal World Health Organization criteria for BMD impression classify patients as: Normal (T-score at or above -1.0), Osteopenia (T-score between -1.0 and -2.5), or Osteoporosis (T-score at or below -2.5). 10-year Fracture Risk(1): Major Osteoporotic Fracture 17% Hip Fracture 1.5% Reported Risk Factors: [place] (), Neck BMD=0.625, BMI=39.3, parental fracture (1) FRAX(R) Version 3.08. Fracture probability calculated for an untreated patient. Fracture probability may be lower if the patient has received treatment. Previous Exams: Region Exam Age BMD T-score BMD Change BMD Change Date g/cm2 vs Baseline vs Previous Total Hip(Left) 12/13/2022 67 0.895 -0.4 -0.119 (-11.7% -0.078 (-8.0%) 02/05/2018 62 0.973 0.3 -0.041 (-4.0%) 0.000 (0.0%) 12/12/2015 60 0.973 0.3 -0.041 (-4.0%) -0.043 (-4.3%) 10/12/2013 58 1.016 0.6 0.003 (0.3%) 0.003 (0.3%) 09/18/2011 56 1.014 0.6 Total Hip(Right) 12/13/2022 67 0.834 -0.9 -0.139 (-14.2% -0.115 (-12.1% 02/05/2018 62 0.949 0.1 -0.024 (-2.4%) 0.001 (0.1%) 12/12/2015 60 0.948 0.0 -0.024 (-2.5%) -0.011 (-1.1%) 10/12/2013 58 0.959 0.1 -0.014 (-1.4%) -0.014 (-1.4%) 09/18/2011 56 0.972 0.2 *Denotes significance at 95% confidence level, LSC for Total Hip = 0.027 g/cm2 # Denotes dissimilar scan types or analysis methods Clinical Information Provided by Patient: Parent has had a hip fracture Has used the following medications: Vitamin D, Calcium Has the following medical conditions: Hysterectomy Patient maximum height was 63 Drinks caffeinated beverages Onset of menses at age 15 Number of children 0 Impression: The patient has low bone mass, based on the Right Femoral Neck T-score. The patient has an estimated ten-year risk of hip fra
--- NOTE | ~2022-12-13 | MM_ITS ---
EXAMINATION: MM screening rebel BI w jimmy HISTORY: Screening TECHNIQUE: Craniocaudal and mediolateral oblique 3-D tomosynthesis images were obtained and synthetic 2-D images were generated. CAD analysis was submitted and interpreted. COMPARISON: Comparison to multiple prior studies sequentially, with oldest reviewed study dated 02/05. BREAST PARENCHYMAL COMPOSITION: Breast composed of scattered areas of fibroglandular density FINDINGS: There is a new focal asymmetry in the lower inner quadrant of the right breast. The left breast is stable without evidence for malignancy. IMPRESSION: 1. New focal right breast asymmetry. 2. Additional mammographic views and possible breast ultrasound are recommended. BI-RADS Category 0: Incomplete: Needs additional imaging evaluation. Reviewed, dictated and finalized at location A. IMPRESSION: 1. New focal right breast asymmetry. 2. Additional mammographic views and possible breast ultrasound are recommended . BI-RADS Category 0: Incomplete: Needs additional imaging evaluation.
== END 2022-12-13 07:43 | disposition home or self-care (01) ==
PROVIDERS: PCP Family Medicine; Visit Provider Obstetrics & Gynecology
DX: Z12.31 Encounter for screening mammogram for malignant neoplasm of breast (principal); Z78.0 Asymptomatic menopausal state; M85.89 Other specified disorders of bone density and structure, multiple sites; R92.8 Other abnormal and inconclusive findings on diagnostic imaging of breast
CPT/HCPCS: 77063; 77067; 77080

== ENCOUNTER 2022-12-21 08:15 | Emergency (ER) | payer BC, SELFPAY ==
--- NOTE | 2022-12-21 08:18 | ED.URI ---
HPI - URI/Sore Throat General Chief Complaint: Extremity Problem,Nontraumatic Stated Complaint: rt foot toe infection,congestion,sore throat Time Seen by Provider: 12/21/22 08:17 Source: patient Mode of arrival: ambulatory Limitations: no limitations History of Present Illness HPI Narrative: Kourtney is a 67-year-old female patient presenting to the clinic today with complaints of sore throat, nasal congestion, and possibly right toe infection. She reports she stubbed her toe on Friday night and this rip part of her toenail off. States that is become very red and swollen and tender to touch. Sore throat nasal congestion started on Friday. She denies any known fever or chills. States she is coughing up some yellow phlegm. She denies any shortness of breath or chest pain. Did a at home COVID test today and it was negative. MD elicited complaint: sore throat and nasal congestion Related Data Home Medications Medication Instructions Recorded Confirmed atenolol 25 mg tablet 25 mg PO QAM 03/11/22 12/21/22 olmesartan 20 1 tablet PO QAM 03/11/22 12/21/22 mg-hydrochlorothiazide 12.5 mg tablet Allergies Allergy/AdvReac Type Severity Reaction Status Date / Time oxycodone [From OxyContin] AdvReac Severe Confusion Verified 12/21/22 08:26 Review of Systems Review of Systems: Pertinent positives per HPI. Patient denies any fever, chills, rash, headache, visual changes, dizziness, cough, shortness of breath, chest pain, palpitations, nausea, vomiting, diarrhea, constipation, abdominal pain, or any urinary issues. [facility] Past Medical History Medical History Abnormal mammogram Actinic keratosis Acute non-recurrent frontal sinusitis Ankle edema, bilateral Anxiety Arthritis of both knees Benign paroxysmal positional vertigo Breast asymmetry Essential (primary) hypertension Gastroesophageal reflux disease Heart murmur History of blood transfusion 2003 History of squamous cell carcinoma of skin Impaired glucose tolerance (oral) Kidney stone Obesity (BMI 30-39.9) Prediabetes Primary osteoarthritis of right knee Vertigo Surgical History Surgical History History of appendectomy History of arthroplasty of left knee (03/07/21) History of arthroscopy of both knees History of colposcopy History of hip surgery (~1974) Bone spur removal History of hysterectomy 2014? History of removal of ovarian cyst History of total right knee replacement (~04/09/22) Status post surgical removal of malignant neoplasm of skin Excision squamous cell carcinoma of the upper extremities. Family History Family History Sibling Family history of gastrointestinal disorder Hypertension Father Family history of chronic obstructive pulmonary disease Family history of congestive heart failure Hypertension Mother Family history of heart disease in male family member before age 55 Hypertension Grandparent Family history of heart disease in male family member before age 55 Social History Social History Social History: The patient lives in [place] with her . They have 7-month-old twin granddaughters and she helps care for them during the week days. Lifelong nonsmoker. Rare alcohol use in moderation. No illicit substance use. She designates her as her surrogate decision maker and she wishes to be a full code. Smoking status: Never smoker Second hand tobacco smoke exposure: No Alcohol intake: current Alcohol use details: STATES MAYBE 2 A MONTH Substance use: never Substance use type: does not use Lack of Transportation: No Lack of Food: Never True Current Housing: I Have Housing Concerned About Future Housing: No Difficulty Paying Gas/Electric B
[2022-12-21 08:23] VITALS: BP 109/89; PULSE 99; RESP 16; TEMP 36.4; O2SAT 99
== END 2022-12-21 08:36 | disposition home or self-care (01) ==
PROVIDERS: Emergency Provider Nurse Practitioner Family; PCP Family Medicine
DX: L08.9 Local infection of the skin and subcutaneous tissue, unspecified (principal); J06.9 Acute upper respiratory infection, unspecified; J02.9 Acute pharyngitis, unspecified; M17.0 Bilateral primary osteoarthritis of knee; I10 Essential (primary) hypertension; K21.9 Gastro-esophageal reflux disease without esophagitis; R01.1 Cardiac murmur, unspecified; R73.02 Impaired glucose tolerance (oral); R73.03 Prediabetes; E66.9 Obesity, unspecified; Z68.39 Body mass index [BMI] 39.0-39.9, adult; Z85.828 Personal history of other malignant neoplasm of skin
CPT/HCPCS: 99213; G0463

== ENCOUNTER 2023-01-02 11:19 | Outpatient (CLI) | payer BC, SELFPAY ==
--- NOTE | ~2023-01-02 | MM_ITS ---
EXAMINATION: MM diagnostic rebel RT w jimmy HISTORY: New focal right breast mammographic asymmetry reported on 12/09/2022 screening mammogram TECHNIQUE: Additional full field ML and spot ML, MLO and CC 3-D tomosynthesis images of the right fred ast were performed and synthetic 2-D images were generated. Rolled medial and lateral lateral cranioc audal views. CAD analysis was submitted and interpreted. COMPARISON: 12/09/2022 bilateral screening mammogram FINDINGS: No reproducible suspicious mass is noted on these supplemental views.. IMPRESSION: 1. No mammographic evidence of malignancy 2. Routine annual mammographic screening is recommended BI-RADS Category 1: Negative Reviewed, dictated and finalized at location A.
== END 2023-01-02 11:20 | disposition home or self-care (01) ==
PROVIDERS: PCP Family Medicine; Visit Provider Obstetrics & Gynecology
DX: N64.89 Other specified disorders of breast (principal)
CPT/HCPCS: 77061; 77065; G0279

== ENCOUNTER 2023-01-22 08:06 | Emergency (ER) | payer BC, SELFPAY ==
[2023-01-22 08:21] VITALS: BP 124/72; PULSE 127; RESP 16; TEMP 36.4; O2SAT 96
--- NOTE | 2023-01-22 08:24 | ED.URI ---
HPI - URI/Sore Throat General Chief Complaint: Upper Respiratory Infection Stated Complaint: SORE THROAT/DRAINAGE/EYE REDNESS Time Seen by Provider: 01/22/23 08:24 Source: patient, RN notes reviewed and old records reviewed Mode of arrival: ambulatory Limitations: no limitations History of Present Illness HPI Narrative: 62 year female presents [facility] complaints sore throat, sinus congestion, yellow sinus drainage,sinus pain, bilateral ear pain, productive cough,and noted some crusting to her eyelashes in the morning for the past week duration. Patient reports that she has not had any fevers, chills or sweats, reports no nausea,vomiting or diarrhea. Patient concerned for pink eye grand kids did have pink eye lately, patient has no sclera or conjunctiva redness no drainage noted from eyes.Patient reports that she took some Zyrtec and some NyQuil for her symptoms. MD elicited complaint: sore throat, rhinorrhea, nasal congestion, sinus pain and other (eye redness) Onset (ago): week(s) (1) Pain scale (0-10): 6 Able to tolerate fluids by mouth: Yes Treatments prior to arrival: other (NyQuil,Zyrtec) Related Data Home Medications Medication Instructions Recorded Confirmed atenolol 25 mg tablet 25 mg PO QAM 03/11/22 01/22/23 olmesartan 20 1 tablet PO QAM 03/11/22 01/22/23 mg-hydrochlorothiazide 12.5 mg tablet Allergies Allergy/AdvReac Type Severity Reaction Status Date / Time oxycodone [From OxyContin] AdvReac Severe Confusion Verified 01/22/23 08:29 Review of Systems Review of Systems: CONSTITUTIONAL: Reports malaise,no chills, sweats, or fever. EYES: Denies visual changes, redness, positive for reported crustiness on ashes in am no itching ENT: Reports rhinorrhea, congestion, sinus pain, otalgia and sore throat. CARDIOVASCULAR: Denies chest pain, palpitations, or edema. RESPIRATORY: Reports loose cough.? Denies dyspnea. GASTROINTESTINAL: Denies abdominal pain, nausea, vomiting, diarrhea SKIN: Denies rash or itching. MUSCULOSKELETAL: Denies myalgia. NEUROLOGIC:Reports frontal headache. All systems reviewed & are unremarkable except as noted in HPI and below [facility] Past Medical History Medical History Abnormal mammogram Actinic keratosis Acute non-recurrent frontal sinusitis Ankle edema, bilateral Anxiety Arthritis of both knees Benign paroxysmal positional vertigo Breast asymmetry Essential (primary) hypertension Gastroesophageal reflux disease Heart murmur History of blood transfusion 2003 History of squamous cell carcinoma of skin Impaired glucose tolerance (oral) Kidney stone Obesity (BMI 30-39.9) Prediabetes Primary osteoarthritis of right knee Vertigo Surgical History Surgical History History of appendectomy History of arthroplasty of left knee (03/07/21) History of arthroscopy of both knees History of colposcopy History of hip surgery (~1974) Bone spur removal History of hysterectomy 2014? History of removal of ovarian cyst History of total right knee replacement (~04/09/22) Status post surgical removal of malignant neoplasm of skin Excision squamous cell carcinoma of the upper extremities. Family History Family History Sibling Family history of gastrointestinal disorder Hypertension Father Family history of chronic obstructive pulmonary disease Family history of congestive heart failure Hypertension Mother Family history of heart disease in male family member before age 55 Hypertension Grandparent Family history of heart disease in male family member before age 55 Social History Social History Social History: The patient lives in [place] with her . They have 7-month-old twin granddaughters and she helps care for t
== END 2023-01-22 08:50 | disposition home or self-care (01) ==
PROVIDERS: Emergency Provider Registered Nurse; PCP Family Medicine
DX: J32.9 Chronic sinusitis, unspecified (principal); F41.9 Anxiety disorder, unspecified; M17.0 Bilateral primary osteoarthritis of knee; I10 Essential (primary) hypertension; K21.9 Gastro-esophageal reflux disease without esophagitis; R01.1 Cardiac murmur, unspecified; R73.03 Prediabetes; E66.9 Obesity, unspecified; Z68.42 Body mass index [BMI] 45.0-49.9, adult; Z85.828 Personal history of other malignant neoplasm of skin; Z96.653 Presence of artificial knee joint, bilateral
CPT/HCPCS: 99213; G0463

== ENCOUNTER → 2023-03-04 10:39 | Outpatient (CLI) | payer BC, MEDICARE, SELFPAY ==
--- NOTE | ~2023-03-04 | XR_ITS ---
EXAMINATION: XR chest 2V 03/04/2023 11:12 INDICATION: Chronic cough PROCEDURE: 2 view chest COMPARISON: Comparison to multiple prior studies sequentially, with oldest reviewed study dated 07/24. FINDINGS: The lungs are clear. The cardiomediastinal silhouette is within normal limits. There are no pleural effusions. There is no pneumothorax suspected. IMPRESSION: 1: NO ACUTE CARDIOPULMONARY DISEASE. Reviewed, dictated and finalized at location L.
== END ==
PROVIDERS: PCP Family Medicine; Visit Provider Nurse Practitioner Family
DX: R05.3 Chronic cough (principal)
CPT/HCPCS: 71046

== ENCOUNTER → 2023-03-28 11:08 | Outpatient (CLI) | payer BC, SELFPAY ==
--- NOTE | ~2023-03-28 | CT_ITS ---
CT Scan of the Chest without Contrast: Clinical Indication: Chronic cough Technique: Contiguous sections were acquired throughout the chest without intravenous contrast. Dose reduction technique was used on this scan by utilizing automated exposure control and iterative recon struction technique. The dose-length product (DLP) was 526.24 mGy-cm. Findings: There is no evidence of any significant mediastinal, hilar or axillary lymphadenopathy. The mediastin al soft tissues appear normal. There is no evidence of pleural or pericardial effusion. The lungs are clear. No pulmonary nodules or infiltrates are noted. Images through the upper abdomen reveal diffuse fatty infiltration of liver. Impression: No significant pulmonary abnormality seen. Diffuse fatty infiltration of the liver. Reviewed, dictated and finalized at location . Impression: No significant pulmonary abnormality seen. Diffuse fatty infiltration of the liver.
== END ==
PROVIDERS: PCP Family Medicine; Visit Provider Nurse Practitioner Family
DX: R05.3 Chronic cough (principal); K76.0 Fatty (change of) liver, not elsewhere classified
CPT/HCPCS: 71250

== ENCOUNTER 2023-04-24 08:00 | Outpatient (NON) | payer BC, SELFPAY | END 2023-04-24 08:01 | disposition home or self-care (01) | PROVIDERS: PCP Family Medicine; Visit Provider Nurse Practitioner | DX: C44.311 Basal cell carcinoma of skin of nose (principal); C44.319 Basal cell carcinoma of skin of other parts of face | CPT/HCPCS: 88305 ==

== ENCOUNTER 2023-05-08 17:04 | Emergency (ER) | payer BC, SELFPAY ==
--- NOTE | ~2023-05-08 | XR_ITS ---
EXAM: XR shoulder LT min 2V DATE: 05/08/2023 17:30 HISTORY: fall, left shoulder pain/limited rom . COMPARISON: None available. FINDINGS: Decreased mineralization. No fracture or dislocation. No lytic or blastic lesion. Mild deg enerative changes at the AC joint and glenohumeral joint. Subacromial narrowing as can be seen with r otator cuff pathology. No erosion or periosteal change. Soft tissues within normal limits. IMPRESSION: No acute osseous finding in the left shoulder. Reviewed, dictated and finalized at location K.
--- NOTE | 2023-05-08 17:17 | ED.GENADULT ---
HPI - General Adult General Chief complaint: Extremity Injury, Upper Stated complaint: FALL/L SHOULDER/ARM INJURY Time Seen by Provider: 05/08/23 17:17 Source: patient Mode of arrival: ambulatory Limitations: no limitations History of Present Illness HPI narrative: 68 yo F presents with c/o pain to L shoulder. Pt states she tripped over raised area of sidewalk and fell down onto L shoulder. 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 Denies hitting head, no LOC. Ambulatory with steady gait. Increased pain to L shoulder with movement. Distal NV intact. All systems reviewed and negative except as noted above. Related Data Home Medications Medication Instructions Recorded Confirmed atenolol 25 mg tablet 25 mg PO QAM 03/11/22 05/08/23 olmesartan 20 1 tablet PO QAM 03/11/22 05/08/23 mg-hydrochlorothiazide 12.5 mg tablet Allergies Allergy/AdvReac Type Severity Reaction Status Date / Time oxycodone [From OxyContin] AdvReac Severe Confusion Verified 05/08/23 17:12 Review of Systems Review of Systems: CONSTITUTIONAL: Denies fever, chills, or sweats. EYES: Denies visual changes, redness, or discharge. ENT: Denies rhinorrhea, congestion, sore throat, or otalgia. CARDIOVASCULAR: Denies chest pain, palpitations, or edema. RESPIRATORY: Denies cough or dyspnea. GASTROINTESTINAL: Denies abdominal pain, nausea, vomiting, or diarrhea. GENITOURINARY: Denies dysuria or hematuria. SKIN: Denies rash or itching. MUSCULOSKELETAL: Denies back pain or myalgia. Reports pain to L shoulder NEUROLOGIC: Denies headache, numbness, or weakness. PSYCHIATRIC: Denies anxiety or depression. All other systems reviewed are negative, except as documented in HPI. [facility] Past Medical History Medical History Abnormal mammogram Actinic keratosis Acute non-recurrent frontal sinusitis Ankle edema, bilateral Anxiety Arthritis of both knees Benign paroxysmal positional vertigo Breast asymmetry Essential (primary) hypertension Gastroesophageal reflux disease Heart murmur History of blood transfusion 2003 History of squamous cell carcinoma of skin Impaired glucose tolerance (oral) Kidney stone Obesity (BMI 30-39.9) Prediabetes Primary osteoarthritis of right knee Vertigo Surgical History Surgical History History of appendectomy History of arthroplasty of left knee (03/07/21) History of arthroscopy of both knees History of colposcopy History of hip surgery (~1974) Bone spur removal History of hysterectomy 2015? History of removal of ovarian cyst History of total right knee replacement (~04/09/22) Status post surgical removal of malignant neoplasm of skin Excision squamous cell carcinoma of the upper extremities. Family History Family History Sibling Family history of gastrointestinal disorder Hypertension Father Family history of chronic obstructive pulmonary disease Family history of congestive heart failure Hypertension Mother Family history of heart disease in male family member before age 55 Hypertension Grandparent Family history of heart disease in male family member before age 55 Social History Social History Social History: The patient lives in [place] with her . They have 7-month-old twin granddaughters and she helps care for them during the week days. Lifelong nonsmoker. Rare alcohol use in moderation. No illicit substance use. She designates her as her surrogate decision maker and she wishes to be a full code. Smoking status: Never smoker Second hand tobacco smoke exposure: No Additional smoking assessment comments: PT DENIES ALL FORMS OF TOBACCO USE Alcohol intake: current Alcohol use details: STATES MAYBE 2 A MONTH Substance use: never Substance use typ
[2023-05-08 17:18] VITALS: BP 136/70; PULSE 92; RESP 16; TEMP 37.1; O2SAT 100
== END 2023-05-08 18:17 | disposition home or self-care (01) ==
PROVIDERS: Emergency Provider Nurse Practitioner Family; PCP Family Medicine
DX: S43.402A Unspecified sprain of left shoulder joint, initial encounter (principal); W18.09XA Striking against other object with subsequent fall, initial encounter; M17.0 Bilateral primary osteoarthritis of knee; I10 Essential (primary) hypertension; K21.9 Gastro-esophageal reflux disease without esophagitis; R01.1 Cardiac murmur, unspecified; Z85.828 Personal history of other malignant neoplasm of skin; E66.9 Obesity, unspecified; Z68.38 Body mass index [BMI] 38.0-38.9, adult; R73.03 Prediabetes; Z96.653 Presence of artificial knee joint, bilateral
CPT/HCPCS: 73030; 99213; A4565; G0463

== ENCOUNTER 2023-05-19 14:13 | Outpatient (NON) | payer BC, SELFPAY | END 2023-05-19 14:14 | disposition home or self-care (01) | LOC: ANHLAB 14:13 | PROVIDERS: PCP Family Medicine; Visit Provider Nurse Practitioner | DX: C44.311 Basal cell carcinoma of skin of nose (principal); C44.319 Basal cell carcinoma of skin of other parts of face | CPT/HCPCS: 88305; 88331 ==

== ENCOUNTER 2023-11-24 10:01 | Outpatient (CLI) | payer BC, SELFPAY ==
[2023-11-26 22:21] LABS: Immunoglobulin G, Serum 754 mg/dL (600-1540); Immunoglobulin G1 481 mg/dL (382-929); Immunoglobulin G2 218 mg/dL (241-700); Immunoglobulin G3 29 mg/dL (22-178); Immunoglobulin G4 32.4 mg/dL (4.0-86.0)
[2023-11-28 09:24] LABS: Immunoglobulin A 276 mg/dL (70-320); Immunoglobulin G 824 mg/dL (600-1540); Immunoglobulin M 94 mg/dL (50-300)
== END 2023-11-24 10:02 | disposition home or self-care (01) ==
PROVIDERS: PCP Family Medicine; Visit Provider Physician Assistant
DX: J32.9 Chronic sinusitis, unspecified (principal); J39.8 Other specified diseases of upper respiratory tract; R05.9 Cough, unspecified
CPT/HCPCS: 36415; 82784; 82787

== ENCOUNTER 2023-12-04 12:36 | Outpatient (CLI) | payer BC, SELFPAY ==
--- NOTE | 2023-12-04 16:25 | WPDPFTINT ---
PFT Procedure Performed PFT Procedure Performed Spirometry with Pre/Post Bronchodilator Plethysmography (Lung Vol) Diffusing Cap (DLCO) Flow Vol Loop PFT Interpretation DOS: 12/04/2023 REQUESTING: Fabiana Higgins PA-C REASON FOR TESTING: Cough PULMONARY FUNCTION TESTS Results are reliable and reproducible. Spirometry: Pre bronchodilator FEV1 is 2.40 L, 107%, normal. Pre bronchodilator FVC is 2.94 L, 102%, normal. FEV1/FVC ratio 82%. After bronchodilator there is a 1% increase in the FEV1 and a 3% decrease in the FVC. Ratio is stable. This is a non statistically significant change. Lung volumes: Total lung capacity is 5.09 L, 104% predicted, normal. FRC is 2.13 L, 77%, normal. Residual volume is 2.07 L, 101%, normal. RV/TLC is 41%, normal range. Airway resistance is 1.94, 101%, normal. Diffusion: DLCO is 17.7, 86%, normal. DLCO/VA is 4.67, 106%, normal. Flow volume loop: Unremarkable IMPRESSION: This study shows normal spirometry without response to bronchodilator, normal lung volumes and normal diffusion. There are no prior studies for comparison. Carolyn Ace MD
== END 2023-12-04 12:37 | disposition home or self-care (01) ==
PROVIDERS: PCP Family Medicine; Visit Provider Physician Assistant
DX: J32.9 Chronic sinusitis, unspecified (principal); J39.8 Other specified diseases of upper respiratory tract; R05.3 Chronic cough
CPT/HCPCS: 94060; 94726; 94729

== ENCOUNTER 2024-03-03 15:27 | Outpatient (CLI) | payer BC, SELFPAY ==
--- NOTE | ~2024-03-03 | MM_ITS ---
EXAMINATION: MM screening rebel BI w jimmy HISTORY: Screening TECHNIQUE: Craniocaudal and mediolateral oblique 3-D tomosynthesis images were obtained and synthetic 2-D images were generated. CAD analysis was submitted and interpreted. COMPARISON: Comparison to multiple prior studies sequentially, with oldest reviewed study dated 02/15. BREAST PARENCHYMAL COMPOSITION: Not Dense: Breast are almost entirely fatty. FINDINGS: There is no evidence of suspicious mass, calcification, or architectural distortion to sugg est malignancy in either breast. There has been no suspicious interval change. IMPRESSION: 1. No mammographic evidence of malignancy. 2. Recommend routine screening mammography in one year. BI-RADS Category 1: Negative Reviewed, dictated and finalized at location B.
== END 2024-03-03 15:28 | disposition home or self-care (01) ==
LOC: ANHIMG 15:28
PROVIDERS: PCP Family Medicine; Visit Provider Obstetrics & Gynecology
DX: Z12.31 Encounter for screening mammogram for malignant neoplasm of breast (principal)
CPT/HCPCS: 77063; 77067

== ENCOUNTER 2024-05-06 10:45 | Outpatient (CLI) | payer BC, SELFPAY ==
--- NOTE | ~2024-05-06 | CT_ITS ---
CT facial bones wo con Ordering provider: ZHOU Espinosa History: . abnormal XR on right mandible . Comparison: None. Technique: Thin slice axial CT of the facial bones was performed without contrast. Coronal and sagit vasquez reformatted images were also obtained. . Automated exposure control and iterative reconstruction technique were employed. The dose-length product was 325.90 mGy-cm. FINDINGS: PARANASAL SINUSES: Well aerated. BONES: No facial fracture including no nasal bone fracture. ORBITS AND SUPERFICIAL SOFT TISSUES: The optic globes and orbits are normal. The superficial soft tis sues are normal. VISUALIZED MASTOIDS: Well aerated. LIMITED VISUALIZED BRAIN PARENCHYMA: Normal. IMPRESSION: No facial fracture. Reviewed, dictated and finalized at location A. IMPRESSION: No facial fracture.
== END 2024-05-06 10:46 ==
LOC: MICIMG 10:45
PROVIDERS: PCP Nurse Practitioner Family; Visit Provider Nurse Practitioner Family
DX: M26.69 Other specified disorders of temporomandibular joint (principal); R93.89 Abnormal findings on diagnostic imaging of other specified body structures
CPT/HCPCS: 70486

== ENCOUNTER 2025-03-23 14:43 | Outpatient (CLI) | payer BC, SELFPAY ==
--- NOTE | ~2025-03-23 | MM_ITS ---
EXAMINATION: MM screening rebel BI w jimmy HISTORY: Screening mammogram TECHNIQUE: Craniocaudal and mediolateral oblique 3-D tomosynthesis images were obtained and synthetic 2-D images were generated. CAD analysis was submitted and interpreted. COMPARISON: 03/03/2024, 01/02/2023, 12/13/2022, 09/25/2021, 02/16/2020 BREAST PARENCHYMAL COMPOSITION:Not Dense. The breasts are almost entirely fatty FINDINGS: No suspicious mass, calcification, or architectural distortion are identified in either fred ast to suggest malignancy. There has been no suspicious interval change. IMPRESSION: No mammographic evidence of malignancy. Recommend routine screening mammography in one year. BI-RADS Category 1: Negative Reviewed, dictated and finalized at location .
--- OUTSIDE RECORDS SUMMARY | 2025-03-23 14:46 | XMS_ITS | Encounter Summary ---
Author Organization [facility] Address [address] [place] [address] Care Team Providers Care Brim Buster Name Role Phone Unavailable Primary Care Provider Unavailabl e Encounter Details Date Type Department Care Team (Late st Contact Info) Description 03/31/2024 Lab Requisition [facility] Physician [facility] - DermPath Lab [address] [place] [id number] Izzy Higgins MD [address] [place] [address] Social History Tobacco Use Types Packs/Day Years Used Date Smoking Tobacco: Never Assessed Comments Unknown Sex and Gender Information Value Date Recorded Sex Assigned at Not on file Legal Sex Female 6:27 PM [employer] Gender Identity Not on file Sexual Orientation Not on file documented as of this encounter Plan of Treatment Not on file documented as of this encounter Procedures Procedure Name Priority Date/Time Associated Diagnosis Comments DERMATOPATHOLOGY Routine 03/31/2024 8:21 AM CDT documented in this encounter Results * DERMATOPATHOLOGY (03/31/2024 8:21 AM CDT) Case Report Dermatopathology Report Case: [id number] Authorizing Provider: Izzy Higgins MD Collected: 03/31/2024 08:21 AM Ordering Location: [facility] Physician [facility] - Received: 04/01/2024 08:18 AM DermPath Lab Pathologist: Rose Mary Monroe MD Specimen: Skin, left chest 10:28 AM CDT DERMATOPATHOLOGY LABORATORY Final Diagnosis Specimen A. 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 The specimen consists of a non-oriented ellipse of skin measuring [id number] mm. The epidermal surface is unremarkable. The margin is inked green. The 12 o'clock and 6 o'clock tips are submitted in cassette 1. The remainder of the ellipse is serially sectioned and submitted in cassette 2 - 3. Jar 0. 10:28 AM [facility] DERMATOPATHOLOGY LABORATORY Microscopic Description Specimen A. SKIN, left chest: The epidermis shows parakeratosis, full thickness disorderly maturation of keratinocytes, mitoses at different levels, and dyskeratotic cells. This lesion is present at the margin of the specimen. There are fibroblasts and collagen bundles oriented parallel to the skin surface with elongated blood vessels, some of which are oriented perpendicular to the skin surface. Additional deeper sections were obtained and reviewed. COMMENT: Though this was submitted as an oriented specimen, the orienting notch was not observed at the time of grossing and was therefore processed as non-oriented. 10:28 AM [facility] DERMATOPATHOLOGY LABORATORY Disclaimer An external and internal positive and negative controls are appropriate for the histochemical, immunohistochemical and immunofluorescence stain(s) in this case (if any), except where stated explicitly. The performance characteristics of the stain(s) cited in this report were developed and its performance characteristic determined by the Dermatopathology Laboratory at [facility], directed by Dr. Joao Mas. These tests need not be, and therefore are not, approved by the [place] Food and Drug Administration. The tests are used for clinical purposes. Billing Codes Specimen Charges Stain Charges 42515 1 10:28 AM T DERMATOPATHOLOGY LABORATORY Embedded Images 10:28 AM [facility] DERMATOPATHOLOGY LABORATORY Pathology/Cytolo gy TISSUE SPECIMEN FROM SKIN / Unknown 03/31/2024 8:21 AM CDT 04/01/2024 8:18 AM CDT us Izzy Higgins MD LAB - PATHOLOGY/CYTOLOGY ORD ERABLES Final Result DERMATOPATHOLOGY LABORATORY [facility] - Department of Dermatology [facility] Medicine [address] [place] [address], [address] [phone] documented in this encounter Visit Diagnoses Not on filedocumented in this encounter
--- OUTSIDE RECORDS SUMMARY | 2025-03-23 14:46 | XMS_ITS | Referral Summary ---
Author Organization [facility] [address] Address [address] [place] [address] Care Team Providers Care Statistical Programmer Name Role Phone Ambrocio Soto MD Primary Care Provider + [phone] Allergies Active Allergy Reactions Criticality Noted Date Comments Oxycodone Nausea & Vomiting Low 03/07/2021 Medications RABEprazole (ACIPHEX) 20 mg EC tablet 1 tablet (20 mg total) daily 1 03/09/2019 Active multivitamin tabletIndicatio ns:Vitamin Deficiency Prevention Take 1 tablet by mouth daily Active DULoxetine DR (CYMBALTA) 30 mg capsule 1 capsule (30 mg total) 2 (two) times a day 10/20/2019 Active olmesartan-hydr ochlorothiazide (BENICAR HCT) 20-12.5 mg per tablet TAKE 1 TABLET BY MOUTH DAILY 90 tablet 2 11/02/2024 Active atenoloL (TENORMIN) 25 mg tablet TAKE 1 TABLET(25 MG) BY MOUTH DAILY 90 tablet 2 11/02/2024 Active Active Problems Problem Noted Date Diagnosed Date Nonrheumatic aortic valve insufficiency 05/06/20 19 Mitral valve anterior leaflet prolapse 9 Essential hypertension 03/18/2019 Social History Tobacco Use Types Packs/Day Years Used Date Smoking Tobacco: Never Smokeless Tobacco: Never Alcohol Use Standard Drinks/Week Comments Yes 0 (1 standard drink = 0.6 oz pur e alcohol) social drinker AUDIT-C Answer Date Recorded Frequency of Alcohol Consumption Never 03/18/2019 Average Number of Drinks Not on file 019 Frequency of Binge Drinking Not on file 02/21 Comments Unknown Sex and Gender Information Value Date Recorded Sex Assigned at Not on file Legal Sex Female 2:59 AM NIB ASSEMBLER Gender Identity Female 05/30/2021 7:51 PM CDT Sexual Orientation Straight 05/30/2021 7: 51 PM CDT Last Filed Vital Signs Vital Sign Reading Time Taken Comments Blood Pressure 100/70 11/02/2024 8:39 AM NIB ASSEMBLER Pulse 86 11/02/2024 8:39 AM NIB ASSEMBLER Temperature - - Respiratory Rate 12 11/23/2020 9:47 AM NIB ASSEMBLER Oxygen Saturation 98% 11/02/2024 8:39 AM NIB ASSEMBLER Inhaled Oxygen Concentration - - Weight 101.2 kg (223 lb) 11/02/2024 8:39 AM NIB ASSEMBLER Height 160 cm (5' 3) 11/02/2024 8:39 AM NIB ASSEMBLER Body Mass Index 39.5 11/02/2024 8:39 AM NIB ASSEMBLER Plan of Treatment Not on file Insurance [facility] Care Teams Statistical Programmer Relationship Specialty Start Date End Date Ambrocio Soto MD PCP - General Family Medicine 05/18/20
--- OUTSIDE RECORDS SUMMARY | 2025-03-23 14:46 | XMS_ITS | Patient Health Record ---
Author Organization [facility] Address [address] [place], [place] [address] Care Team Providers Care Aircraft Fueler Name Role Phone AndraLIONEL stein Unavailable [phone] Carlton Lopez Unavailable Unavailable Reason For Referral No Information Plan Of Treatment No Information Insurance Providers Payer Name Payer Address Payer Phone Subscriber Number Group Number Insured Name Patient Relationship to Insured Coverage Start Date Coverage End Date [facility] [address] [address] [place] [id number] PH[employer]IP [employer] Self - patient is the insured [facility] [address] [place], [place] [id number] [employer] Self - patient is the insured
--- OUTSIDE RECORDS SUMMARY | 2025-03-23 14:46 | XMS_ITS | Clinical Summary ---
Author Organization [facility] Address [address] [place] [address] Care Team Providers Care Restrike Hammer Operator Name Role Phone Unavailable Primary Care Provider Unavailabl e Source Comments [facility] Real Intent,non-owned Affiliates and Associated Physician Practices is amultiple site organization consisting of ambulatory clinics and hospital sitesin [place], [place], [place] and [place]. This disclosure is being madepursuant to the Care Everywhere program and may not contain all informatio navailable regarding this patient. 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 Gender Identity Not on file Sexual Orientation Not on file Plan of Treatment Health Maintenance Due Date Last Done Comments BONE DENSITY TESTING 1957 COLOGUARD (AGES 45-75) - COL ON CA SCREENING 1957 COLON MONITORING 1957 COLONOSCOPY - COLON CA SCREENING 1957 CT COLONOGRAPHY - COLON CA SCREENING 1957 Colorectal Cancer Screening 1957 FIT - COLON CA SCREENING 1957 FLEX SIG - COLON CA SCREENING 1957 LIPID TESTING 1957 MAMMOGRAM 1957 HEPATITIS C SCREENING 03/30/1975 DTAP/TDAP/TD VACCINES (1 - Tdap) 1976 PNEUMOCOCCAL VACCINE 50+ (1 of 1 - PCV) 2007 ZOSTER VACCINE (1 of 2) 2007 COVID-19 VACCINE ( - 2023-2 5 season) 2024 DEPRESSION SCREENING 09/22/2024 INFLUENZA VACCINE (Season Ended) 2025 Respiratory Syncytial Virus (RSV) Vaccine Pt: or over 60 yrs (1 - 1-dose 75+ series) 2032 HEPATITIS B VACCINE Aged Out No longe r eligible based on patient's age to complete this topic HIB VACCINE Aged Out No longer eligi ble based on patient's age to complete this topic HPV VACCINE Aged Out No longer eligi ble based on patient's age to complete this topic MENINGOCOCCAL (Group B) VACC INE SHARED DECISION-MAKING Aged Out No longer eligibl e based on patient's age to complete this topic MENINGOCOCCAL GROUPS A/C/Y/W VACCINE Aged Out No longer eligible b ased on patient's age to complete this topic Insurance [facility] ANTHEM ANTHEM
--- OUTSIDE RECORDS SUMMARY | 2025-03-23 14:46 | XMS_ITS | Clinical Summary ---
Author Organization [facility] Address [address] [place] [address] Care Team Providers Care Visualizer Name Role Phone Unavailable Primary Care Provider Unavailabl e Social History Tobacco Use Types Packs/Day Years Used Date Smoking Tobacco: Never Assessed Comments Unknown Sex and Gender Information Value Date Recorded Sex Assigned at Not on file Legal Sex Female 4:47 PM CDT Gender Identity Not on file Sexual Orientation Not on file Plan of Treatment Health Maintenance Due Date Last Done Comments Colorectal Cancer Screening Colonoscopy (10 Years) 1957 Hepatitis C 1975 DTaP, Tdap and Td Vaccines ( 1 - Tdap) 1976 Mammogram Screening 1997 Pneumococcal Vaccine: 50+ Ye ars (1 of 1 - PCV) 2007 Zoster Vaccines (1 of 2) 2007 Dexa Scan (General) 2022 COVID-19 Vaccine ( - 2023-2 5 season) 2024 RSV Immunization or 60+ Years (1 - 1-dose 75+ series) 2032 Meningococcal B Vaccine Aged Out No l onger eligible based on patient's age to complete this topic Meningococcal Vaccine Aged Out No juan vineet eligible based on patient's age to complete this topic RSV Immunizations Under 20 Months Aged Out No longer eligible based on patient's age to complete this topic
--- OUTSIDE RECORDS SUMMARY | 2025-03-23 14:46 | XMS_ITS | Clinical Summary ---
Author Organization [facility] [address] Address [address] [place] [address] Care Team Providers Care Attendant [facility] Name Role Phone Ambrocio Soto MD Primary Care Provider + [phone] Allergies Active Allergy Reactions Criticality Noted Date [...] anterior leaflet prolapse 9 Essential hypertension 03/18/2019 Surgical History Surgery Date Site/Laterality Comments APPENDECTOMY JOINT REPLACEMENT March 06 2021 left knee Medical History Medical History Date Comments Hypertension Cataract small one starting on left eye Arthritis 2014 GERD (gastroesophageal reflux disease) Cancer (HCC) Face basal cell carcinoma Family History Medical History Relation Name Comments COPD Brother Melo [place] Heart attack Brother Melo Shon Heart disease Brother Melo Shon COPD Father Piter Menendez Hypertension Father Piter Menendez Heart attack Maternal Grandfather Mumtaz Mckeon Arthritis Mother Lillie Menendez COPD Mother Lillie Menendez Heart attack Mother Lillie Menendez Heart disease Mother Lillie Menendez Hypertension Mother Lillie Menendez Relation Name Status Comments Brother Melo Menendez Father Piter Menendez (Age 72) COPD Maternal Grandfather Mumtaz Mckeon Mother Lillie Menendez Alive H/O STENT Social History Tobacco Use Types Packs/Day Years [...] on file Legal Sex Female 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 Gender Identity Female 05/30/2021 7:51 PM CDT Sexual Orientation Straight 05/30/2021 7: 51 PM CDT Obstetrics History Last Filed Vital Signs Vital Sign Reading Time Taken Comments Blood Pressure 100/70 11/02/2024 8:39 AM STARCHER AND TENTER RANGE FEEDER Pulse 86 11/02/2024 8:39 AM STARCHER AND TENTER RANGE FEEDER Temperature - - Respiratory Rate 12 11/23/2020 9:47 AM STARCHER AND TENTER RANGE FEEDER Oxygen Saturation 98% 11/02/2024 8:39 AM STARCHER AND TENTER RANGE FEEDER Inhaled Oxygen Concentration - - Weight 101.2 kg (223 lb) 11/02/2024 8:39 AM STARCHER AND TENTER RANGE FEEDER Height 160 cm (5' 3) 11/02/2024 8:39 AM STARCHER AND TENTER RANGE FEEDER Body Mass Index 39.5 11/02/2024 8:39 AM STARCHER AND TENTER RANGE FEEDER Plan of Treatment Health Maintenance Due Date Last Done Comments Breast Cancer Screening-Mammogram 1957 Colon Cancer Screening-Colonoscopy 1957 Depression Screening 1957 Fall Risk Assessment 1957 Hepatitis C Screening 1957 Osteoporosis Screening-Bone Density Scan 1957 Hepatitis B Screening 1975 Pneumococcal vaccine 65+ (1 of 1 - PCV) 2007 Zoster Vaccine (1 of 2) 2007 Well Visit 65+ 2022 Covid-19 Vaccine (3 - 2023- season) 05/23/202402/2021, 12/03/2020 Influenza Vaccine (Season Ended) 2025 DTaP/Tdap/Td Vaccine (3 - Td or Tdap) 05/16/2030, 08/11/2014 Insurance [facility] Address: [place] [address] Care Teams Attendant [facility] Relationship Specialty Start Date End Date Ambrocio Soto MD PCP - General Family Medicine 05/18/20
--- OUTSIDE RECORDS SUMMARY | 2025-03-23 14:46 | XMS_ITS | Continuity of Care Document ---
Author Organization [facility] Address [address] [place] [address] [place] [address] Phone Care Team Providers Care Tool Sharpener Name Role Phone Camilo Otero DO Unavailable Unavailable Advance Directives Directive Yes / No Effective Date File Name No Information Encounters Encounter Description Practice Location Reason(s) For Visit Diagnoses Date Provider Providers Copied on Encounter [facility], [address] [place] [address] [address], [place], [place], [id number], [place] tel:[phone] [facility] No Information Branden Malone. [address] [place], [address], [place]. tel: [phone] Family History Family Member Type Diagnosis Age At Onset No Information Payers Payer name Insurance type Covered libertarian ID Authoriza tion(s) No Information Social History Type Description Quantity Date Captured Comments Sex Female Smoking Status No Information Chief Complaint And Reason For Visit No Information Reason For Referral Reason For Referral No Information History Of Present Illness Encounter Date Complaint History Of Prese nt Illness No Information Functional Status Date Functional Assessmen t No Information Instructions Date Instruction Additional Infor mation No Information Assessments Type Assessment Date No Information Patient Care Teams Name Effective Dates (start - stop) Status Members No Information
--- OUTSIDE RECORDS SUMMARY | 2025-03-23 14:46 | XMS_ITS | Encounter Summary ---
Author Organization [facility] Address [address] [place] [address] Care Team Providers Care Clinical Trials Nurse Name Role Phone Unavailable Primary Care Provider Unavailabl e Encounter Details Date Type Department Care Team (Late st Contact Info) Description 03/01/2024 Lab Requisition [facility] - DermPath Lab [address] [facility], [place] [phone] Izzy Higgins MD [address] [facility] [address] [place] [address] Social History Tobacco Use Types Packs/Day Years Used Date Smoking Tobacco: Never Assessed Comments Unknown Sex and Gender Information Value Date Recorded Sex Assigned at Not on file 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 Gender Identity Not on file Sexual Orientation Not on file documented as of this encounter Plan of Treatment Not on file documented as of this encounter Procedures Procedure Name Priority Date/Time Associated Diagnosis Comments DERMATOPATHOLOGY Routine 03/01/2024 12:5 6 PM CDT documented in this encounter Results * DERMATOPATHOLOGY (03/01/2024 12:56 PM CDT) Case Report Dermatopathology Report Case: [id number] Authorizing Provider: Izzy Higgins MD Collected: 03/01/2024 12:56 PM Ordering Location: [facility] - Received: 03/02/2024 12:20 PM DermPath Lab Pathologist: Jory Avila MD Specimens: A) - Skin, right mid forearm B) - Skin, left chest 2:16 PM CDT DERMATOPATHOLOGY LABORATORY Final Diagnosis Specimen A. 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 SKIN, left chest: SQUAMOUS CELL CARCINOMA IN SITU (CURRY'S DISEASE) (D04.5) 4 2:16 PM CDT DERMATOPATHOLOGY LABORATORY at 1416 CDT Clinical History AK vs BCC 4 2:16 PM CDT DERMATOPATHOLOGY LABORATORY Gross Description Specimen A: Received is one formalin filled container labeled with the patient's name and designated right mid forearm. The specimen consists of a shave biopsy measuring 5x3x1 mm. Jar 0. Specimen B: Received is one formalin filled container labeled with the patient's name and designated left chest. The specimen consists of a shave biopsy measuring 7x6x1 mm. Jar 0. 4 2:16 PM CDT DERMATOPATHOLOGY LABORATORY Microscopic Description Specimen A. SKIN, right mid forearm: The epidermis shows parakeratosis, full thickness disorderly maturation of keratinocytes, mitoses at different levels, and dyskeratotic cells. Additional deeper sections were obtained and reviewed. Specimen B. SKIN, left chest: The epidermis shows parakeratosis, full thickness disorderly maturation of keratinocytes, mitoses at different levels, and dyskeratotic cells. 4 2:16 PM CDT DERMATOPATHOLOGY LABORATORY Disclaimer An external and internal positive and negative controls are appropriate for the histochemical, immunohistochemical and immunofluorescence stain(s) in this case (if any), except where stated explicitly. The performance characteristics of the stain(s) cited in this report were developed and its performance characteristic determined by the Dermatopathology Laboratory at [facility], directed by Dr. Joao Mas. These tests need not be, and therefore are not, approved by the [place] Food and Drug Administration. The tests are used for clinical purposes. Billing Codes Specimen Charges Stain Charges 95096 43086 1 1 4 2:16 PM CDT DERMATOPATHOLOGY LABORATORY Embedded Images 4 2:16 PM CDT DERMATOPATHOLOGY LABORATORY Pathology/Cytology TISSUE SPECIMEN FROM SKIN / Unknown 03/01/2024 12:56 PM CDT 03/02/2024 12:20 PM CDT Miscellaneous samples (specimen) TISSUE SPECIMEN FROM SKIN / Unknown 03/01/2024 12:56 PM CDT 03/02/2024 12:20 PM CDT us Izzy Higgins MD LAB - PATHOLOGY/CYTOLOGY ORD ERABLES Final Result DERMATOPATHOLOGY LABORATORY [facility] - Department of Dermatology [facility] Medicine [address] [place] [address], [address] [phone] documented in this encounter Visit Diagnoses Not on filedocumented in this encounter
--- OUTSIDE RECORDS SUMMARY | 2025-03-23 14:46 | XMS_ITS | Encounter Summary ---
Author Organization [facility] Address [address] [place] [address] Care Team Providers Care Combination Man Name Role Phone Unavailable Primary Care Provider Unavailabl e Encounter Details Date Type Department Care Team (Late st Contact Info) Description 03/17/2024 Lab Requisition [facility] - DermPath Lab [address] [facility], [place] [address] Izzy Higgins MD [address] [facility] [address] [place] [address] Social History Tobacco Use Types Packs/Day Years Used Date Smoking Tobacco: Never Assessed Comments Unknown Sex and Gender Information Value Date Recorded Sex Assigned at Not on file 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 Gender Identity Not on file Sexual Orientation Not on file documented as of this encounter Plan of Treatment Not on file documented as of this encounter Procedures Procedure Name Priority Date/Time Associated Diagnosis Comments DERMATOPATHOLOGY Routine 03/17/2024 9:45 AM CDT documented in this encounter Results * DERMATOPATHOLOGY (03/17/2024 9:45 AM CDT) Case Report Dermatopathology Report Case: [id number] Authorizing Provider: Izzy Higgins MD Collected: 03/17/2024 09:45 AM Ordering Location: [facility] - Received: 03/18/2024 01:34 PM DermPath Lab Pathologist: Jory Avila MD Specimen: Skin, right mid forearm 1:20 PM CDT DERMATOPATHOLOGY LABORATORY Final Diagnosis Specimen A. 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 The specimen consists of a non-oriented ellipse of skin measuring 89j10u2 mm. The epidermal surface is unremarkable. The margin is inked green. The 12 o'clock and 6 o'clock tips are submitted in cassette 1. The remainder of the ellipse is serially sectioned and submitted in cassette 3-4. Jar 0. 1:20 PM CDT DERMATOPATHOLOGY LABORATORY Microscopic Description Specimen A. SKIN, right mid forearm: The epidermis shows parakeratosis, full thickness disorderly maturation of keratinocytes, mitoses at different levels, and dyskeratotic cells. Mib-1 stain highlights proliferating keratinocytes at all levels of the epidermis. This lesion is present at the 6 to 12 o'clock (red inked) margin of the specimen in block 3. This lesion is present at the 12 to 6 o'clock (green inked) margin of the specimen in block 4. There are fibroblasts and collagen bundles oriented parallel to the skin surface with elongated blood vessels, some of which are oriented perpendicular to the skin surface. 1:20 PM CDT DERMATOPATHOLOGY LABORATORY Disclaimer An external and internal positive and negative controls are appropriate for the histochemical, immunohistochemical and immunofluorescence stain(s) in this case (if any), except where stated explicitly. The performance characteristics of the stain(s) cited in this report were developed and its performance characteristic determined by the Dermatopathology Laboratory at [facility], directed by Dr. Joao Mas. These tests need not be, and therefore are not, approved by the [place] Food and Drug Administration. The tests are used for clinical purposes. Billing Codes Specimen Charges Stain Charges 97124 1 99542 1 1:20 PM CDT DERMATOPATHOLOGY LABORATORY Embedded Images 1:20 PM CDT DERMATOPATHOLOGY LABORATORY Pathology/Cytolo gy TISSUE SPECIMEN FROM SKIN / Unknown 03/17/2024 9:45 AM CDT 03/18/2024 1:34 PM CDT us Izzy Higgins MD LAB - PATHOLOGY/CYTOLOGY ORD ERABLES Final Result DERMATOPATHOLOGY LABORATORY [facility] - Department of Dermatology [facility] Medicine [address] [place] [address], [address] [phone] documented in this encounter Visit Diagnoses Not on filedocumented in this encounter
== END 2025-03-23 14:44 | disposition home or self-care (01) ==
LOC: ANHIMG 14:44
PROVIDERS: PCP Family Medicine; Visit Provider Obstetrics & Gynecology
DX: Z12.31 Encounter for screening mammogram for malignant neoplasm of breast (principal); Z98.82 Breast implant status
CPT/HCPCS: 77063; 77067

== ENCOUNTER 2025-07-03 13:48 | Emergency (ER) | payer BC, SELFPAY ==
--- NOTE | ~2025-07-03 | XR_ITS ---
EXAMINATION: XR foot RT min 3V, 07/03/2025 14:13 CDT HISTORY: LATERA L FOOT PAIN AFTER INJURY COMPARISON: No comparisons available. Findings: Slightly displaced fracture of the distal fifth metatarsal No significant degenerative changes. Soft tissues unremarkable. Impression: Fifth metatarsal fracture Reviewed, dictated and finalized at location . Impression: Fifth metatarsal fracture
--- NOTE | 2025-07-03 13:55 | ED.LOWEXIN ---
HPI - Extremity Injury (Lower) General Chief Complaint: Extremity Injury, Lower Stated Complaint: R Foot Pain Time Seen by Provider: 07/03/25 14:30 Source: patient and RN notes reviewed Mode of arrival: ambulatory Limitations: no limitations History of Present Illness HPI Narrative: 70-year-old female presents with concern for right foot pain. Reports on Friday she rolled her foot and felt a pop. She reports since then she has used ice and elevation. She reports pain, swelling, bruising. Reports pain worse with weight-bearing. She denies decreased strength, sensation, range of motion in the foot or digits. MD complaint: foot injury Related Data Home Medications ?Medication ?Instructions ?Recorded ?Confirmed ?Last Taken ?Type atenolol 25 mg tablet 25 mg PO QAM 03/11/22 07/03/25 04/09/22 History olmesartan 20 1 tablet PO QAM 03/11/22 07/03/25 04/08/22 History mg-hydrochlorothiazide 12.5 mg tablet Allergies Allergy/AdvReac Type Severity Reaction Status Date / Time oxycodone (From OxyContin) AdvReac Severe Confusion Verified 04/22/25 10:20 Review of Systems Review of Systems: CONSTITUTIONAL: Denies malaise, chills, sweats, or fever. SKIN: Denies rash or itching, open skin, laceration, abrasion, redness, warmth MUSCULOSKELETAL: Reports left foot pain, swelling, bruising NEUROLOGIC: Denies numbness, weakness All systems reviewed & are unremarkable except as noted in HPI and below PMFSH Past Medical History Medical History Screening mammogram, encounter for Basal cell carcinoma removal in 03/2023 Breast asymmetry Primary osteoarthritis of right knee Obesity (BMI 30-39.9) Abnormal mammogram Actinic keratosis Acute non-recurrent frontal sinusitis Ankle edema, bilateral Impaired glucose tolerance (oral) Prediabetes Vertigo Anxiety Benign paroxysmal positional vertigo History of squamous cell carcinoma of skin Gastroesophageal reflux disease Arthritis of both knees History of blood transfusion 2003 Heart murmur Essential (primary) hypertension Kidney stone Surgical History Surgical History History of total right knee replacement (~04/09/22) History of arthroscopy of both knees History of arthroplasty of left knee (03/07/21) Status post surgical removal of malignant neoplasm of skin Excision squamous cell carcinoma of the upper extremities. History of hysterectomy 2014? History of hip surgery (~1974) Bone spur removal History of colposcopy History of appendectomy History of removal of ovarian cyst Family History Family History Sibling Family history of gastrointestinal disorder Hypertension Father Family history of chronic obstructive pulmonary disease Family history of congestive heart failure Hypertension Mother Family history of heart disease in male family member before age 55 Hypertension Grandparent Family history of heart disease in male family member before age 55 Social History Social History Social History: She designates her as her surrogate decision maker and she wishes to be a full code. Smoking status: Never smoker Second hand tobacco smoke exposure: No Additional smoking assessment comments: PT DENIES ALL FORMS OF TOBACCO USE Alcohol intake: current Alcohol use details: STATES MAYBE 2 A MONTH Substance use: never Substance use type: does not use Do You Feel Safe in your Home?: Yes Lack of Transportation: No Lack of Food: Never True Current Housing: I Have Housing Concerned About Future Housing: No Difficulty Paying Gas/Electric Bills: No Difficulty Paying for Meds: No Currently Unemployed: No Education: Bachelor's Degree Difficulty w/ Childcare or Family Care: No Living arrangements: with family 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 There is no relevant family history pertinent to the presenting complaint Exam Narrative: GENERAL: Well-appearing, well-nourished, and in no acute distress. HEAD: Normocephalic, atraumatic. EYES: PERRLA, conjunctivae clear NECK: Supple. CHEST: Speaks in full sentences. No respiratory distress. HEART: Regular rate and rhythm. Normal and equal peripheral pulses. EXTREMITIES: Right foot, digits have grossly normal strength and sensation, grossly normal range of motion. Moderate foot edema left lateral ecchymosis. 5/5 strength with ankle in digit flexion and extension. Normal sensation with sensitivity to light touch and pain. Lateral foot tenderness. No open wounds, no skin tenting, no devitalized tissue or atrophy, no trophic changes, no obvious deformity, alignment normal, nearby joints and structures intact. Distal pulses palpable and equal bilaterally, skin warm, dry, pink. Capillary refill less than 3 seconds. SKIN: Warm, dry, no rash. NEURO: Alert and oriented x3. PSYCH: Normal mood and affect Course Course Emergency Course: Patient is aware of diagnosis, understands and agrees to treatment plan. Anticipatory guidance given. Patient agrees to follow-up as directed and is aware of reasons to seek care at the emergency department. Portions of this record may have been created with voice recognition software Level of Care: Express Care Visit Vital Signs Vital signs: Reviewed. MDM - Extremity Injury (Lower) MDM Narrative Medical decision making narrative: The patient was evaluated by myself in the express care. History is obtained from patient who is an independent historian and physical exam was performed.? Available medical records were reviewed at this time. ? Exam findings show no acute concerns or changes; patient is non-toxic appearing and is in no distress. Patient is appropriate for outpatient treatment and follow-up. ? I have evaluated and discussed social determinants of health with the patient that could potentially impact subsequent diagnosis and treatment plans. ? Patients injury and pain is consistent with musculoskeletal etiology. No signs of neurological or vascular compromise on exam. Compartments and tissues are soft without signs of compartment syndrome. Pain is felt appropriate for further evaluation on an outpatient basis. Imaging Data My impression: Images reviewed, interpreted by radiologist, agree, see report. Radiologist's impression: EXAMINATION: XR foot RT min 3V, 07/03/2025 14:13 CDT HISTORY: LATERA L FOOT PAIN AFTER INJURY COMPARISON: No comparisons available. Findings: Slightly displaced fracture of the distal fifth metatarsal No significant degenerative changes. Soft tissues unremarkable. Impression: Fifth metatarsal fracture Critical Care Time Critical Care Time Critical Care Time: No Discharge Plan Discharge Clinical Impression: Metatarsal fracture Qualifiers: Encounter type: initial encounter Metatarsal bone: fifth Fracture type: closed Fracture alignment: displaced Patient Disposition: Home Condition: Stable Instructions: Foot Fracture in Adults (ED) Additional Instructions: Please rest, ice and elevate the affected extremity. Please take Motrin 600mg every 8 hours, as needed, for pain (take with food), you can alternate with Tylenol. [place] Tramadol for pain not relieved by Tylenol or ibuprofen. Follow up with Orthopedic Surgery in 1-2 days for further evaluation - please call for an appointment. Keep cast clean, dry and on. Use crutches to not bear weight on your right foot. Please go to ER immediately for increased pain, tingling/numbness, swelling, redness, and fever Patient Language: Latvian Prescriptions: New tramadol 50 mg tablet 50 mg PO Q6H PRN (Reason: pain) Qty: 20 0RF No Action fluticasone propion-salmeterol [Advair HFA] 115-21 mcg/actuation HFA aerosol inhaler 1 puff inhalation BID Qty: 12 3RF Rx Instructions: Rinse mouth and spit after each use albuterol sulfate 90 mcg/actuation HFA aerosol inhaler 1 - 2 puff inhalation Q4-6H PRN (Reason: shortness of breath or wheezing) Qty: 8.5 2RF atenolol 25 mg tablet 25 mg PO QAM Rx Instructions: TAKE 1 TABLET BY MOUTH EVERY DAY olmesartan-hydrochlorothiazide 20-12.5 mg tablet 1 tablet PO QAM Rx Instructions: TAKE 1 TABLET BY MOUTH EVERY DAY duloxetine 30 mg capsule,delayed release(DR/EC) 30 mg PO DAILY Qty: 90 1RF Rx Instructions: TAKE 1 CAPSULE BY MOUTH DAILY rabeprazole 20 mg tablet,delayed release (DR/EC) 20 mg PO QAM Qty: 90 1RF Rx Instructions: Do not crush, chew, or divide. Follow-up/Referrals: Zoran Jackson MD [Physician, Orthopedics] Ambrocio Soto MD [Primary Care Provider, Family Practice] Time of Disposition: 14:35
[2025-07-03 14:07] VITALS: BP 105/76; PULSE 96; RESP 16; TEMP 36.3; O2SAT 100
== END 2025-07-03 14:41 | disposition home or self-care (01) ==
PROVIDERS: Emergency Provider Nurse Practitioner; PCP Family Medicine
DX: S92.351A Displaced fracture of fifth metatarsal bone, right foot, initial encounter for closed fracture (principal); X50.9XXA Other and unspecified overexertion or strenuous movements or postures, initial encounter; I10 Essential (primary) hypertension; R01.1 Cardiac murmur, unspecified; K21.9 Gastro-esophageal reflux disease without esophagitis; R73.03 Prediabetes; M17.0 Bilateral primary osteoarthritis of knee; E66.9 Obesity, unspecified; Z68.39 Body mass index [BMI] 39.0-39.9, adult; Z85.828 Personal history of other malignant neoplasm of skin; Z96.653 Presence of artificial knee joint, bilateral
CPT/HCPCS: 73630; 99214; G0463

== ENCOUNTER 2025-07-17 14:22 | Emergency (ER) | payer BC, SELFPAY ==
--- NOTE | 2025-07-17 14:26 | ED.GENADULT ---
HPI - General Adult General Chief complaint: Upper Respiratory Infection Stated complaint: Upper Respiratory Symptoms Time Seen by Provider: 07/17/25 14:26 Source: patient Mode of arrival: ambulatory Limitations: no limitations History of Present Illness HPI narrative: 70-year-old female patient presents to [facility] with complaints of cold symptoms for the past 5-6 days. Patient denies any fevers she was is aware of but states she has had a lot of runny nose, stuffy nose, cough with yellow mucus production. Patient states she is blowing her nose a lot with yellow mucus production. Denies any chest pain only having difficulty breathing because of her stuffiness denies any shortness of breath. Denies abdominal pain nausea vomiting or diarrhea. Patient states she is allergic to the flu vaccine so therefore cannot take a flu vaccine and did not get a COVID booster this year. Patient states that she does take a multivitamin and takes vitamin-C and vitamin-D. Patient states that she is also on medication for high blood pressure. Related Data Home Medications ?Medication ?Instructions ?Recorded ?Confirmed ?Last Taken ?Type atenolol 25 mg tablet 25 mg PO QAM 03/11/22 07/04/25 04/09/22 History olmesartan 20 1 tablet PO QAM 03/11/22 07/04/25 04/08/22 History mg-hydrochlorothiazide 12.5 mg tablet Allergies Allergy/AdvReac Type Severity Reaction Status Date / Time oxycodone (From OxyContin) AdvReac Severe Confusion Verified 07/04/25 13:12 Review of Systems Review of Systems: CONSTITUTIONAL: Denies fever, chills, or sweats. EYES: Denies visual changes, redness, or discharge. ENT: Positive rhinorrhea, congestion, sore throat, denies otalgia. CARDIOVASCULAR: Denies chest pain, palpitations, or edema. RESPIRATORY: positive cough denies dyspnea. GASTROINTESTINAL: Denies abdominal pain, nausea, vomiting, or diarrhea. GENITOURINARY: Denies dysuria or hematuria. SKIN: Denies rash or itching. MUSCULOSKELETAL: Denies back pain, joint pain, or myalgia. NEUROLOGIC: Denies headache, numbness, or weakness. PSYCHIATRIC: Denies anxiety or depression. [facility] Past Medical History Medical History Screening mammogram, encounter for Basal cell carcinoma removal in 03/2023 Breast asymmetry Primary osteoarthritis of right knee Obesity (BMI 30-39.9) Abnormal mammogram Actinic keratosis Acute non-recurrent frontal sinusitis Ankle edema, bilateral Impaired glucose tolerance (oral) Prediabetes Vertigo Anxiety Benign paroxysmal positional vertigo History of squamous cell carcinoma of skin Gastroesophageal reflux disease Arthritis of both knees History of blood transfusion 2003 Heart murmur Essential (primary) hypertension Kidney stone Surgical History Surgical History History of total right knee replacement (~04/09/22) History of arthroscopy of both knees History of arthroplasty of left knee (03/07/21) Status post surgical removal of malignant neoplasm of skin Excision squamous cell carcinoma of the upper extremities. History of hysterectomy 2014? History of hip surgery (~1974) Bone spur removal History of colposcopy History of appendectomy History of removal of ovarian cyst Family History Family History Sibling Family history of gastrointestinal disorder Hypertension Father Family history of chronic obstructive pulmonary disease Family history of congestive heart failure Hypertension Mother Family history of heart disease in male family member before age 55 Hypertension Grandparent Family history of heart disease in male family member before age 55 Social History Social History Social History: She designates her as her surrogate decision maker and she wishes to be a full code. Smoking status: Never smoker Second hand tobacco smoke exposure: No Additional smoking assessment comments: PT DENIES ALL FORMS OF TOBACCO USE Alcohol intake: current Alcohol use details: STATES MAYBE 2 A MONTH Substance use: never Substance use type: does not use Do You Feel Safe in your Home?: Yes Lack of Transportation: No Lack of Food: Never True Current Housing: I Have Housing Concerned About Future Housing: No Difficulty Paying Gas/Electric Bills: No Difficulty Paying for Meds: No Currently Unemployed: No Education: Bachelor's Degree Difficulty w/ Childcare or Family Care: No Living arrangements: with family 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 There is no relevant family history pertinent to the presenting complaint. Exam Narrative: GENERAL: Well-appearing, well-nourished, and in no acute distress. HEAD: Normocephalic, atraumatic. EYES: PERRLA and EOMI. ENT: Nares erythema edema noted bilaterally, Clear rhinorrhea no epistaxis. Mucous membranes moist. posterior pharynx with no erythema, tonsillar enlargement, exudates or lesions present. Bilateral TMs are clear no erythema or foreign bodies canal. NECK: Supple. No lymphadenopathy CHEST: Clear to auscultation. No respiratory distress. HEART: Regular rate and rhythm. No murmur heard. Normal peripheral pulses. ABDOMEN: Soft, nontender, nondistended, normal active bowel sounds. EXTREMITIES: Normal range of motion. No edema. SKIN: Warm, dry, no rash. NEURO: No focal deficits. Alert and oriented x3. Course Course Level of Care: Express Care Visit Reevaluation(s) Reevaluation #1: Re-evaluated patient and notified her that her point of care testing today is negative. Discussed with patient we will send the strep off to the lab for a culture however her symptoms are most likely viral and will take some time to get over. Discussed with patient that she can help decrease the time that she gets over this by increasing her vitamin C, vitamin-D and zinc. Discussed with her she can also use hot tea and honey to help with the sore throat symptoms. Using Tylenol ibuprofen as needed and she can also get [id number] corcidin high blood pressure as needed. Patient verbalized understanding denies any other questions or concerns at this time Date: 07/17/25 Time: 15:11 Vital Signs Vital signs: Vital signs reviewed. Medical Decision Making MDM Narrative Medical decision making narrative: plan of care for patient is to test her today for influenza, COVID and strep. Discussed with her about benefits versus risks of doing a chest x-ray for possible pneumonia. Patient states she does not feel like this is pneumonia given that she has not had any fevers really does not feel like she has have been that bad of a cough and states is mostly interface. Differential Diagnosis Differential Diagnosis: Differential diagnosis: Allergic rhinitis, chronic sinusitis, tonsillitis, acute sinusitis, infectious mononucleosis, seasonal influenza, pertussis, diphtheria, meningococcal disease, viral syndrome, viral bronchitis, RSV, COVID-19 Lab Data Labs: Lab Results 07/17/25 07/17/25 Range/Units 14:56 15:00 POC Influenza A Ag Negative (Negative) POC Influenza B Ag Negative (Negative) POC SARS CoV-2 Ag Negative (Negative) POC Grp A Strep Screen Negative (Negative) Critical Care Time Critical Care Time Critical Care Time: No Discharge Plan Discharge Clinical Impression: Viral URI Patient Disposition: Home Condition: Stable Instructions: Antibiotic Form, Viral Syndrome (ED) Additional Instructions: Viral illness may last between 7-12days; antibiotic is NOT recommended at this time. double your dose of vitamin C while you are sick until you start feeling better and then you can go back down to your normal dose. Continue taking your vitamin-D 2000 IU daily. May want to add zinc 40-50 mg a day for 4-5 days until you start feeling better. May also want to try using some hot green tea with honey which can help decrease the length of viruses as well as the natural cough suppressant and a natural anti-inflammatory. Please follow instructions on the Medrol Dosepak to help with your symptoms. Recommend antihistamine such as Benadryl at night time and Claritin/Zyrtec/Anabel during the day Cough syrup may cause drowsiness; avoid driving or take it at night time. Also, recommend symptomatic treatment includes: rest, fluids, and increase humidity of the air at home. Recommend Acetaminophen or nonsteroidal anti-inflammatory agents (NSAIDs) as directed in the bottle to reduce fever and/pain/headache. Avoid smoking/second-hand smoke. Limit visits to areas with large crowds. Please schedule a follow-up visit with your personal physician for further evaluation and treatment within 3-5days. Including recheck and discussion of your blood pressure. If your symptoms persist, change or worsen significantly before you can contact your personal physician then please, without delay, go to the emergency department for further evaluation. Patient Language: Hebrew Prescriptions: New methylprednisolone 4 mg tablets,dose pack See Rx Instructions PO .COMPLEX Qty: 21 0RF Rx Instructions: for 6 days No Action tramadol 50 mg tablet 50 mg PO Q6H PRN (Reason: pain) Qty: 20 0RF albuterol sulfate 90 mcg/actuation HFA aerosol inhaler 1 - 2 puff inhalation Q4-6H PRN (Reason: shortness of breath or wheezing) Qty: 8.5 2RF atenolol 25 mg tablet 25 mg PO QAM Rx Instructions: TAKE 1 TABLET BY MOUTH EVERY DAY olmesartan-hydrochlorothiazide 20-12.5 mg tablet 1 tablet PO QAM Rx Instructions: TAKE 1 TABLET BY MOUTH EVERY DAY duloxetine 30 mg capsule,delayed release(DR/EC) 30 mg PO DAILY Qty: 90 1RF Rx Instructions: TAKE 1 CAPSULE BY MOUTH DAILY rabeprazole 20 mg tablet,delayed release (DR/EC) 20 mg PO QAM Qty: 90 1RF Rx Instructions: Do not crush, chew, or divide. Follow-up/Referrals: Ambrocio Soto MD [Primary Care Provider, Family Practice] Time of Disposition: 15:11
[2025-07-17 14:58] LABS: EDSTREPNEGPOS1 Negative (Negative)
[2025-07-17 15:02] LABS: EDCOVIDSCREEN Negative (Negative); EDINFLUASCREEN Negative (Negative); EDINFLUBSCREEN Negative (Negative)
== END 2025-07-17 15:18 | disposition home or self-care (01) ==
PROVIDERS: Emergency Provider Nurse Practitioner Family; PCP Family Medicine
DX: J06.9 Acute upper respiratory infection, unspecified (principal); Z20.822 Contact with and (suspected) exposure to COVID-19; I10 Essential (primary) hypertension; R01.1 Cardiac murmur, unspecified; M17.0 Bilateral primary osteoarthritis of knee; R73.03 Prediabetes; E66.9 Obesity, unspecified; Z85.828 Personal history of other malignant neoplasm of skin; Z96.653 Presence of artificial knee joint, bilateral
CPT/HCPCS: 87081; 87426; 87804; 87880; 99213; G0463